=== PATIENT | female | born 1955 | race Caucasian/White ===

== ENCOUNTER 2019-12-07 09:42 | Outpatient (CLI) | payer MEDICARE, OTHER, SELFPAY ==
--- NOTE | ~2019-12-07 | DEXA_ITS ---
BMD(1) Young-Adult(2) Age-Matched(3) Region (g/cm2) T-score Z-score WHO Classification L1 0.955 -1.5 0.0 Osteopenia L2 1.003 -1.7 -0.1 Osteopenia L3 1.101 -0.9 0.6 Normal L4 1.324 0.8 2.4 Normal L1-L3 1.030 -1.2 0.3 Osteopenia Trend: L1-L3 Change vs Change vs Measured Age BMD(1) Baseline Previous Date (years) (g/cm2) (%) (%) 12/07/2019 [age] 1.030 baseline - 1 - Statistically 68% of repeat scans fall within 1SD (+- 0.010 g/cm2 for AP Spine L1-L3) 2 - [place] (Combined NHANES (ages 20-30) / [employer] (ages 20-40)) AP Spine Reference Population (v112) 3 - Matched for Age, Weight (females 25-100 kg), Ethnic 11 - World Health Organization - Definition of Osteoporosis and Osteopenia for Women: Normal = T-score at or above -1.0 SD; Osteopenia = T-score between -1.0 and -2.5 SD; Osteoporosis = T-score at or below -2.5 SD; (WHO definitions only apply when a young healthy Women reference database is used to determine T-scores.) Printed: 12/07/2019 10:31:50 AM (13.60)76:3.00:50.00:12.0 0.00:9.06 0.60x1.05 18.3:%Fat=21.9% 0.00:0.00 0.00:0.00 Verify bone is centered and there is sufficient tissue next to bone. Filename: [id number] Scan Mode: Standard;[employer] 37.0 [email or web address] [id number] BMD(1) Young-Adult(2,7) Age-Matched(3) Region (g/cm2) T-score Z-score WHO Classification Neck Left 0.737 -2.2 -0.7 Osteopenia Right 0.807 -1.7 -0.2 Osteopenia Mean 0.772 -1.9 -0.5 Osteopenia Difference 0.070 0.5 0.5 - Total Left 0.760 -2.0 -0.8 Osteopenia Right 0.822 -1.5 -0.3 Osteopenia Mean 0.791 -1.7 -0.5 Osteopenia Difference 0.062 0.5 0.5 - Hip [place] Length Comparison (mm) (Right = 106.9 mm) (Mean = 108.6 mm) (Left = 107.3 mm) Trend: Total Mean Change vs Change vs Measured Age BMD(1) Baseline Previous Date (years) (g/cm2) (%) (%) 12/07/2019 [age] 0.791 baseline - 1 - Statistically 68% of repeat scans fall within 1SD (+- 0.010 g/cm2 for DualFemur Total) 2 - [place] (Combined NHANES (ages 20-30) / [employer] (ages 20-40)) Femur Reference Population (v112) 3 - Matched for Age, Weight (females 25-100 kg), Ethnic 7 - [employer]em[employer] Total T-score difference is 0.5. Asymmetry is None. 11 - World Health Organization - Definition of Osteoporosis and Osteopenia for Women: Normal = T-score at or above -1.0 SD; Osteopenia = T-score between -1.0 and -2.5 SD; Osteoporosis = T-score at or below -2.5 SD; (WHO definitions only apply when a young healthy Women reference database is used to determine T-scores.) Printed: 12/07/2019 10:31:50 AM (13.60); Filename: [id number]; Right Femur; 16.3:%Fat=31.5%; Neck Angle (deg)= 48; Scan Mode: Standard 37.0 uGy; Left Femur; 16.1:%Fat=32.7%; Neck Angle (deg)= 54; Scan Mode: Standard 37.0 uGy Meta [id number] Dear Juan Adamson, Grace patient Audrey Means completed a BMD test on 12/07/2019 using the Meta DXA System (analysis version: 13.60) manufactured by [employer]. The following summarizes the results of our evaluation. PATIENT BIOGRAPHICAL: Name: Audrey Means B
--- NOTE | ~2019-12-07 | XR_ITS ---
XR hip LT min 2V DATE: 12/07/2019 10:38 INDICATION: Chronic bilateral hip pain. Left hip popping sound. TECHNIQUE: AP and lateral views COMPARISON: None FINDINGS: There is left hip joint space narrowing and mild spurring consistent with osteoarthritis. T here is chondrocalcinosis. No fracture or dislocation, avascular necrosis or bone destruction. IMPRESSION: Left hip osteoarthritis Chondrocalcinosis of the left hip Reviewed, dictated and finalized at location B. PROJECT ENGINEER
--- NOTE | ~2019-12-07 | XR_ITS ---
XR hip RT min 2V 12/07/2019 10:38 Indication: Chronic hip pain. Popping sensation. Procedure: 2 views right hip Comparison: 11/06/2010 Findings: Mild osteoarthritis of the right hip. There are loose bodies adjacent to the joint space. N o acute fracture or traumatic malalignment. Surrounding osseous structures and soft tissues are unrem arkable. Impression: 1: Mild osteoarthritis of the right hip. Reviewed, dictated and finalized at location A. CH ENGINE OPTIMIZATION ANALYST Impression: 1: Mild osteoarthritis of the right hip.
== END 2019-12-07 09:43 | disposition home or self-care (01) ==
PROVIDERS: PCP Internal Medicine; Visit Provider Internal Medicine
DX: M85.80 Other specified disorders of bone density and structure, unspecified site (principal); M25.559 Pain in unspecified hip; Z78.0 Asymptomatic menopausal state
CPT/HCPCS: 73502; 77080

== ENCOUNTER 2022-06-24 13:38 | Outpatient (CLI) | payer MEDICARE, OTHER, SELFPAY ==
--- NOTE | ~2022-06-24 | MM_ITS ---
EXAMINATION: MM screening [facility] w eliza HISTORY: Screening mammogram TECHNIQUE: Craniocaudal and mediolateral oblique 3-D tomosynthesis images were obtained and synthetic 2-D images were generated. CAD analysis was submitted and interpreted. COMPARISON: 03/23/2019, 11/04/2017, 06/01/2016 bilateral screening mammogram examinations BREAST PARENCHYMAL COMPOSITION: There are scattered areas of fibroglandular density. FINDINGS: There is no evidence of suspicious mass, calcification, or architectural distortion to sugg est malignancy in either breast. There has been no suspicious interval change. IMPRESSION: 1. No mammographic evidence of malignancy. 2. Recommend routine screening mammography in one year. BI-RADS Category 1: Negative Reviewed, dictated and finalized at location A.
== END 2022-06-24 13:39 | disposition home or self-care (01) ==
PROVIDERS: PCP Internal Medicine; Visit Provider Internal Medicine
DX: Z12.31 Encounter for screening mammogram for malignant neoplasm of breast (principal)
CPT/HCPCS: 77063; 77067

== ENCOUNTER 2022-08-03 12:36 | Outpatient (CLI) | payer MEDICARE, OTHER, SELFPAY ==
--- NOTE | ~2022-08-03 | DEXA_ITS ---
Bone Density Report Name: JOSE LUIS HOOPER Age: 66 Sex: Female Ethnicity: White Date of : 1955 Indication: postmenopausal; screening for osteoporosis; height loss; prior fracture; hysterectomy; Referring Provider: CHARLES BROWER Study: Bone densitometry was performed. Exam Date: August 03, 2022 Accession number: [id number] Bone Density: Region BMD T-score Z-score Classification AP Spine(L1-L4) 0.943 -0.9 1.0 Normal Femoral Neck (Left) 0.586 -2.4 -0.7 Osteopenia Total Hip (Left) 0.682 -2.1 -0.8 Osteopenia Femoral Neck (Right) 0.621 -2.1 -0.4 Osteopenia Total Hip (Right) 0.727 -1.8 -0.4 Osteopenia Total Hip Mean 0.704 -2.0 -0.6 Osteopenia World Health Organization criteria for BMD impression classify patients as: Normal (T-score at or above -1.0), Osteopenia (T-score between -1.0 and -2.5), or Osteoporosis (T-score at or below -2.5). 10-year Fracture Risk: FRAX not reported because: Prior hip or vertebral fracture Treated for osteoporosis Clinical Information Provided by Patient: Have had a previous hip or vertebral fracture Has had a low trauma fracture Is being treated for osteoporosis Has used the following medications: Vitamin D, Calcium Has the following medical conditions: Hysterectomy, hypothyroidism Patient maximum height was 69 Menopause Age: 44 Drinks caffeinated beverages Onset of menses at age 15 Number of children 3 Impression: The patient has low bone mass, based on the Left Femoral Neck T-score. The patient has risk factors, including: previous fracture. Discussion: It is important to ask patients whether they are taking their medications and to encourage continued and appropriate compliance with their osteoporosis therapies to reduce fracture risk. It is also important to review their risk factors and encourage appropriate calcium and vitamin D intakes, exercise, fall prevention and other lifestyle measures. Follow-Up: Consider a repeat BMD and Vertebral Fracture Assessment (VFA) exam in 2 years or sooner if medically necessary, to reassess this patient's status. Reported by: GERMANIA on 08/03/2022 12:55:00 PM. Reviewed, dictated and finalized at location ASlim MOSES
== END 2022-08-03 12:37 | disposition home or self-care (01) ==
LOC: ANHIMG 12:38
PROVIDERS: PCP Internal Medicine; Visit Provider Internal Medicine
DX: Z78.0 Asymptomatic menopausal state (principal); E03.9 Hypothyroidism, unspecified; M19.90 Unspecified osteoarthritis, unspecified site; M85.89 Other specified disorders of bone density and structure, multiple sites
CPT/HCPCS: 77080

== ENCOUNTER 2022-09-21 05:59 | Day surgery (SDC) | payer MEDICARE, OTHER, SELFPAY ==
[2022-05-28 08:34] VITALS: BMI 21.3
[2022-09-15 08:50] VITALS: BMI 22.1
--- NOTE | 2022-09-18 14:38 | PM.HPGS ---
History of Present Illness History of Present Illness Consent: Risks, benefits, and alternatives have been discussed and questions answered. Patient agrees to proceed with procedure. Chief complaint: History of Colon Polyps Narrative: Audrey Means is a 66 year old female referred for colon cancer screening. She has a history of having polyps. Review of Systems Review of Systems: All systems reviewed & are unremarkable except as noted in HPI and below PMFSH Past Medical History Medical History History of PSVT (paroxysmal supraventricular tachycardia) Hypothyroidism PONV (postoperative nausea and vomiting) Social History Social History Smoking status: Never smoker Second hand tobacco smoke exposure: No Alcohol intake: current Substance use: never Substance use type: does not use Living arrangements: with family Spiritual care concerns: No Meds Home Medications and Allergies Home Medications Medication Instructions Recorded Confirmed Type levothyroxine 50 mcg tablet 50 mcg PO DAILY 09/15/22 09/21/22 History Allergies Allergy/AdvReac Type Severity Reaction Status Date / Time No Known Allergies Allergy NONE Unverified 09/21/22 06:36 Exam Resp: Auscultation: clear to auscultation bilaterally Cardio: Rate: regular rate Rhythm: regular rhythm GI: GI Palp: Yes Soft to palpation and No Tenderness to palpation present (GI) Assessment and Plan Assessment and plan (1) Colon cancer screening: Code(s): Z12.11 - Encounter for screening for malignant neoplasm of colon Status: Acute Assessment and Plan: Colonoscopy with possible biopsy or polypectomy or cautery or injection of substances.
--- NOTE | 2022-09-20 20:10 | WPDANESEPPF ---
Anes - Initial Pre Proc Eval Procedure: Operation Date: 09/21/22 07:30 Proposed Procedures p Screening Colonoscopy - Butch Mckinney MD Date/Time: 09/20/22 20:10 Surgeon: Butch Mckinney MD Pre Op Diagnosis: History of Colon Polyps Patient Data Age: 66 Gender: F Height: 1.7 m Weight: 64 kg Allergies Allergy/AdvReac Type Severity Reaction Status Date / Time No Known Allergies Allergy NONE Unverified 09/21/22 06:36 Home Medications Medication Instructions Recorded Confirmed Type levothyroxine 50 mcg tablet 50 mcg PO DAILY 09/15/22 09/21/22 History Patient hx anesthesia problems: none Family hx anesthesia problems: none Results Review: All pre-operative results and documents have been reviewed as part of the pre-operative evaluation. [facility] Past Medical History Medical History (Updated 09/20/22 @ 20:09 by Keegan Bland DO) History of PSVT (paroxysmal supraventricular tachycardia) Hypothyroidism PONV (postoperative nausea and vomiting) Social History Social History Smoking status: Never smoker Second hand tobacco smoke exposure: No Alcohol intake: current Substance use: never Substance use type: does not use Living arrangements: with family Spiritual care concerns: No Anes - Eval Final PreProcedure Day of Procedure 09/20/22 20:10 Patient weight: normal Heart: regular rate and rhythm Lungs: clear to auscultation and normal air movement Airway: Mallampati scale class II Neurological: alert and oriented Last oral intake: >/= 8 hours ASA classification: II Emergent: no Anesthetic plan: proceed Anesthesia type and monitoring: general GIVS and standard monitoring Results Review: All pre-operative results and documents have been reviewed as part of the pre-operative evaluation. Informed Consent: The patient's anesthetic plan and its attendant risks and benefits were discussed with the patient/family/POA. Questions were solicited and answers provided to the satisfaction of the patient/family/POA.
[2022-09-21 06:20] VITALS: BP 113/64; PULSE 112; RESP 20; TEMP 37.6; O2SAT 97
[2022-09-21] MEDS: LACTATED RINGERS 1,000 ML 150 ML IV CONT (06:38)
[2022-09-21 07:32] VITALS: BP 105/68; PULSE 88; RESP 16; O2SAT 98
[2022-09-21 07:42] VITALS: BP 124/65; PULSE 88; RESP 16; O2SAT 98
[2022-09-21 07:52] VITALS: BP 124/75; PULSE 83; RESP 15; O2SAT 96
--- NOTE | 2022-09-21 11:38 | WPDANESPN ---
Anes - Prog Note Post-Op Date/Time: 09/21/22 11:38 Cardiovascular status: normal Respiratory status: normal Airway patency: baseline Mental status: baseline Post-Op hydration status: normal Vital Signs: Last Vital Signs Temp 37.6 C H 09/21/22 06:20 Pulse 83 09/21/22 07:52 Resp 15 09/21/22 07:52 BP 124/75 09/21/22 07:52 Pulse Ox 96 09/21/22 07:52 O2 Del Method Room Air 09/21/22 07:52 Pain Score (VAS): 0 I/O: Intake & Output 09/20/22 09/21/22 09/21/22 23:59 07:59 15:59 Intake Total 400 Balance 400 Post-procedural complaints: none Patient Feedback: Patient satisfied with anesthetic care. Other Findings: Patient vital signs back to baseline. Patient denies nausea and vomiting. Patient's pain under control. Patient OK for discharge.
== END 2022-09-21 08:05 | disposition home or self-care (01) ==
PROVIDERS: PCP Internal Medicine; Visit Provider Internal Medicine Gastroenterology
PROC: 0DJD8ZZ Inspection of Lower Intestinal Tract, Via Natural or Artificial Opening Endoscopic (ICD-10-PCS; CPT 45378; principal; 2022-09-21 07:30)
DX: Z12.11 Encounter for screening for malignant neoplasm of colon (principal)
CPT/HCPCS: 45378

== ENCOUNTER 2024-01-13 11:57 | Outpatient (CLI) | payer MEDICARE, SELFPAY ==
--- NOTE | ~2024-01-13 | CT_ITS ---
EXAMINATION: CT abdomen pelvis w con INDICATION: Right lower quadrant pain TECHNIQUE: Computed tomographic images of the abdomen and pelvis were obtained after the administrati on of 100 cc of Omnipaque 350 intravenous contrast. The dose-length product (DLP) was 268.97 mGy-cm. Automated exposure control and iterative reconstruction technique were employed. COMPARISON: None available FINDINGS: The lung bases are clear. The heart size is normal. The liver, spleen, pancreas, gallbladde r, and adrenal glands are normal. The kidneys are unremarkable. There is calcified atherosclerosis of the aorta and many of the other arteries. No pathologically enlarged abdominal or pelvic lymph nodes are identified. No free intraperitoneal gas or evidence of bowel obstruction. The dilated appendix m easures up to 7 mm. There is edematous stranding of the periappendiceal fat. No perforation or periap pendiceal abscess are identified. There is severe lumbar spondylosis. IMPRESSION: 1. Uncomplicated acute appendicitis. Reviewed, dictated and finalized at location F.
[2024-01-13 12:17] LABS: Basophils Absolute Auto 0.05 K/mm3 (0.00-0.10); Basophils Percent Auto 0.6 % (0.0-1.0); Eosinophils Absolute Auto 0.44 K/mm3 (0.02-0.50); Eosinophils Percent Auto 5.3 % (1.0-6.0); Hematocrit 42.6 % (35.0-42.0); Hemoglobin 13.9 g/dL (11.7-13.8); Immature Granulocyte Absolute 0.04 K/mm3 (0.00-0.00); Immature Granulocyte Percent A 0.5 % (0.0-0.0); Lymphocytes Absolute Auto 1.64 K/mm3 (1.10-4.50); Lymphocytes Percent Auto 19.8 % (18.0-42.0); Mean Corpuscular HGB Conc 32.6 g/dL (32-36); Mean Corpuscular Hemoglobin 29.7 pg (27.0-31.0); Monocytes Absolute Auto 0.59 K/mm3 (0.10-0.90); Monocytes Percent Auto 7.1 % (2.0-11.0); Neutrophils Absolute Auto 5.51 K/mm3 (1.70-7.20); Neutrophils Percent Auto 66.7 % (50.0-70.0); Platelet Count Result 258 K/mm3 (150-420); Red Blood Count 4.68 M/mm3 (4.20-5.40); Red Cell Distribution Width 11.7 % (11.6-14.4); White Blood Count 8.3 K/mm3 (4.8-10.8)
[2024-01-13 12:23] LABS: Appearance Urine Clear (Clear); Bilirubin Urine Negative (Negative); Blood Urine Negative (Negative); Color Urine Yellow (Yellow); Glucose Urine UA Negative (Negative); Ketones Urine 1+ (Negative); Leukocyte Esterase Ur Negative (Negative); Nitrate Urine Negative (Negative); Protein Urine Negative (Negative); Specific Grav Ur 1.025 (1.010-1.020); Urobilinogen Urine 0.2 mg/dL (0.2-1.0)
[2024-01-13 12:28] LABS: Add Urine Microscopic? YES; Bacteria Urine Trace /hpf; Mucus Urine Moderate /lpf; RBC Urine None seen /hpf (0-2); Squamous Epithelial Cell Urine Few /hpf (Few); WBC Urine None seen /hpf (0-3)
[2024-01-13 12:44] LABS: Alanine Aminotransferase 21 U/L (14-59); Albumin Level 3.5 g/dL (3.4-5.0); Alkaline Phosphatase 61 U/L (46-116); Amylase 25 U/L (25-115); Anion Gap 8 mmol/L (4-12); Aspartate Amino Transferase 13 U/L (15-37); Bilirubin,Total 0.6 mg/dL (0.00-1.00); Blood Urea Nitrogen 15 mg/dL (7-18); Calcium 9.5 mg/dL (8.5-10.1); Carbon Dioxide 31 mmol/L (21-32); Chloride 103 mmol/L (98-108); Estimated Glomerular Filt Rate > 60; Glucose 105 mg/dL (70-99); Lipase 31 U/L (16-77); Osmolality Calculated 294 mOsm/kg (285-295); Potassium 4.2 mmol/L (3.5-5.1); Sodium 142 mmol/L (136-145); Total Protein 7.4 g/dL (6.4-8.2)
== END 2024-01-13 11:58 | disposition home or self-care (01) ==
PROVIDERS: PCP Internal Medicine; Visit Provider Internal Medicine
DX: R11.0 Nausea (principal); R10.31 Right lower quadrant pain; K37 Unspecified appendicitis
CPT/HCPCS: 36415; 74177; 80053; 81001; 82150; 83690; 85025; Q9967

== ENCOUNTER 2024-01-13 14:31 | Day surgery (SDC) | payer MEDICARE, SELFPAY ==
[2024-01-13] VITALS (10 sets, daily range): BP systolic 121–143; BP diastolic 51–87; PULSE 76–96; RESP 12–20; TEMP 36.1–36.8; O2SAT 96–100
[2024-01-13 15:01] LABS: Basophils Absolute Auto 0.1 K/mm3 (0.0-0.1); Basophils Percent Auto 0.6 % (0.2-1.2); Eosinophils Absolute Auto 0.3 K/mm3 (0-0.3); Eosinophils Percent Auto 3.3 % (0-4.4); Hematocrit 43.7 % (37.0-47.0); Hemoglobin 14.4 g/dL (12.0-15.0); Immature Granulocyte Absolute 0.03 K/mm3 (0.00-0.031); Immature Granulocyte Percent A 0.3 % (0-0.5); Lymphocytes Absolute Auto 1.37 K/mm3 (0.9-3.2); Lymphocytes Percent Auto 15.7 % (18.3-44.2); Mean Corpuscular Hemoglobin 29.9 pg (26-34); Mean Corpuscular Volume 90.9 fl (80-100); Mean Platelet Volume 10.5 fl (7.4-10.4); Monocytes Absolute Auto 0.6 K/mm3 (0.1-0.6); Monocytes Percent Auto 6.6 % (2.6-8.5); Neutrophils Absolute Auto 6.4 K/mm3 (1.3-6.7); Neutrophils Percent Auto 73.5 % (45.5-73.1); Platelet Count Result 268 k/mm3 (150-375); Red Blood Count 4.81 M/mm3 (4.2-5.4); Red Cell Distribution Width 11.8 % (11.5-14.5); White Blood Count 8.7 K/mm3 (4.5-10.0)
[2024-01-13 15:07] LABS: Alanine Aminotransferase 17 U/L (6-35); Albumin Level 4.4 g/dL (3.5-5.1); Alkaline Phosphatase 75 U/L (38-126); Anion Gap 8 mmol/L (4-12); Aspartate Amino Transferase 22 U/L (14-36); Bilirubin,Total 0.9 mg/dL (0.2-1.3); Blood Urea Nitrogen 14 mg/dL (7-17); Calcium 9.9 mg/dL (8.4-10.2); Carbon Dioxide 26 mmol/L (22-30); Chloride 102 mmol/L (98-107); Estimated CRCL calculation 65 ml/min; Estimated Glomerular Filt Rate > 60; Glucose 106 mg/dL (65-110); Potassium 3.8 mmol/L (3.4-5.0); Sodium 136 mmol/L (137-145)
--- NOTE | 2024-01-13 15:08 | ED.ABDPAIN ---
HPI - Abdominal Pain General Chief Complaint: Abdominal Pain Stated Complaint: appendicitis Time Seen by Provider: 01/13/24 14:37 History of Present Illness HPI narrative: 68-year-old female presented to the emergency department for evaluation of right lower quadrant pain that started on Wednesday. Patient does report a prior history of paroxysmal SVT and prior surgeries include a hysterectomy and a tubal ligation. Patient began having abdominal pain Wednesday did have a CT scan today as outpatient showing acute appendicitis. Patient denies any prior history of coronary disease and does not take any blood thinners. Related Data Home Medications Medication Instructions Recorded Confirmed levothyroxine 50 mcg tablet 50 mcg PO DAILY 09/15/22 09/21/22 Allergies Allergy/AdvReac Type Severity Reaction Status Date / Time No Known Allergies Allergy NONE Unverified 01/13/24 15:32 Review of Systems Review of Systems: All systems reviewed & are unremarkable except as noted in HPI and below PMFSH Past Medical History Medical History History of PSVT (paroxysmal supraventricular tachycardia) Hypothyroidism PONV (postoperative nausea and vomiting) Surgical History Surgical History History of total abdominal hysterectomy History of tubal ligation Social History Social History Smoking status: Never smoker Second hand tobacco smoke exposure: No Alcohol intake: current Substance use: never Substance use type: does not use Living arrangements: with family Spiritual care concerns: No Exam Narrative: APPEARANCE: Well appearing, no pain, no distress, well-nourished. HEAD: normocephalic, atraumatic. EYES: PERRLA/EOMI, conjunctivae clear. NOSE: Normal no drainage EARS:TMS clear with good light reflex. THROAT: Pharynx clear, no exudate. NECK: Supple. No adenopathy, no masses. RESPIRATORY: Airway patent, respirations nonlabored. Clear to auscultation bilaterally, no rales, rhonchi, wheezing. CARDIOVASCULAR: Regular rate and rhythm without murmurs rubs or gallops. ABDOMINAL: Right lower quadrant tenderness to palpation MUSCULOSKELETAL: Moves all extremities. Strength/ROM intact, No edema, No calf tenderness. NEURO: Alert. Cranial nerves II through XII intact. Good gait. Good coordination SKIN: Warm, dry. Course Course Emergency Course: Case was admitted to surgery for anticipated appendectomy Vital Signs Vital signs: Vital Signs Temperature 97.5 F L 01/13/24 14:37 Pulse Rate 93 01/13/24 14:37 Respiratory Rate 20 01/13/24 14:37 Blood Pressure 126/81 01/13/24 14:37 Pulse Oximetry 97 01/13/24 14:37 Oxygen Delivery Room Air 01/13/24 14:37 Temperature 97.0 F L 01/13/24 19:48 Pulse Rate 82 01/13/24 20:30 Respiratory Rate 16 01/13/24 20:30 Blood Pressure 126/68 01/13/24 20:30 Pulse Oximetry 98 01/13/24 20:30 Oxygen Delivery Room Air 01/13/24 20:30 Oxygen Flow Rate 6 01/13/24 20:00 MDM - Abdominal Pain MDM Narrative Medical decision making narrative: 68-year-old female present to the emergency department for evaluation of right lower quadrant pain. Patient was afebrile with no leukocytosis and hemoglobin of 14.4 no significant abnormalities on her CMP. Patient was B positive. CT scan did show evidence acute appendicitis. Surgery was consulted and ultimately surgery did agree to take her to the operating room today. Patient was treated with a dose of Zosyn. Patient family were updated on the results of the workup plan for admission. All questions and were addressed. Differential Diagnosis Differential diagnosis: Likely abdominal pain, acute appendicitis, calculus of kidney, constipation, diverticulitis, gastroenteritis, pancreatitis and small bowel obstruction Lab Data Attestation: I reviewed the ron
[2024-01-13 15:14] LABS: Prothrombin Time 13.3 Seconds (11.1-14.7)
[2024-01-13 15:15] LABS: Partial Thromboplastin Time 27.5 Seconds (22.3-36.8)
[2024-01-13] MEDS: PIPERACILLN/TAZ 3.375GM/NS50ML 3.375 GM/50 ML BAG IVPB (15:32)
[2024-01-13] MEDS: MORPHINE SULFATE (*CRX) 2 MG/ML INJ IV PUSH (15:44)
--- NOTE | 2024-01-13 15:49 | PM.IMHP ---
H&P: HPI History of Present Illness Date/Time: 01/13/24 15:49 Chief Complaint: RLQ abdominal pain Narrative: This is a 68-year-old woman with a history of hypothyroidism, who presented to her PCP today with complaints of RLQ abdominal pain. She woke up with pain Wednesday morning, 4 days ago. She reports the pain as constant and radiates to the suprapubic area. Pain is aggravated by deep breathing, coughing, and any movement. She denies ever having this pain in the past. She reports associated nausea and poor appetite, but no vomiting. Her nausea was bad enough that she has not been able to eat in a few days. She has been able to tolerate some liquids though daily. No fever or chills. She has not been able to sleep the last few nights due to the pain. She went into her PCP today for evaluation. They ordered an outpatient CT scan of the abdomen and pelvis that showed acute uncomplicated appendicitis. No perforation or abscess. Outpatient labs unremarkable with a normal WBC count. She was directed to come to the ER for surgical evaluation. The ER provider evaluated the patient and consulted our service. She is now seen in the ER. She is still having pain but had not had any analgesics in the ER yet. She is asking for some now. Previous abdominal surgeries include a laparoscopic tubal ligation and a total abdominal hysterectomy. Review of Systems Review of Systems: All systems reviewed & are unremarkable except as noted in HPI and below Constitutional: Constitutional: Reports as per HPI, Reports no additional constitutional complaints, Denies chills, Denies fatigue, Denies fever(s) and Reports poor appetite Eyes: Eyes: Reports no additional eye complaints ENT: Reports system reviewed and no additional complaints, except as documented and Denies dizziness Cardiovascular: Cardiovascular: Reports no additional cardiovascular complaints, Denies chest pain and Denies leg edema Respiratory: Respiratory: Reports no additional respiratory complaints, Denies cough and Denies dyspnea Gastrointestinal: Gastrointestinal: Reports as per HPI, Reports no additional gastrointestinal complaints, Reports abdominal pain, Denies change in bowel habits, Denies change in stool character, Reports nausea and Denies vomiting Genitourinary: Genitourinary: Reports no additional female genitourinary complaints and Denies dysuria Musculoskeletal: Musculoskeletal: Reports no additional musculoskeletal complaints, Denies abnormal gait and Denies joint swelling Integumentary/Breasts: Skin/Breast: Reports system reviewed and no additional complaints, except as docu Neurologic: Reports system reviewed and no additional complaints, except as documented, Denies headache(s), Denies focal weakness, Denies numbness and Denies tingling PMFSH Past Medical History Medical History (Updated 01/13/24 @ 15:57 by MADI Woodard) History of PSVT (paroxysmal supraventricular tachycardia) Hypothyroidism PONV (postoperative nausea and vomiting) Surgical History Surgical History History of total abdominal hysterectomy History of tubal ligation Social History Social History Smoking status: Never smoker Second hand tobacco smoke exposure: No Alcohol intake: current Substance use: never Substance use type: does not use Living arrangements: with family Spiritual care concerns: No Meds Home Medications and Allergies Home Medications Medication Instructions Recorded Confirmed Type levothyroxine 50 mcg tablet 50 mcg PO DAILY 09/15/22 09/21/22 History Allergies Allergy/AdvReac Type Severity Reaction Status Date / Time No Known Allergies Allergy NONE Unverified 01/13/24 15:32 Vital Signs Vital Signs - 24 hr 01/13/24 14:37 Temperature 97.5 F L Pulse Rate 93 Respiratory Rate 20 Blood Pressure 126/81 Pulse Oximetry 97 Oxygen Delivery Ro
[2024-01-13] MEDS: LACTATED RINGERS 1,000 ML 30 ML IV CONT (17:54)
--- NOTE | 2024-01-13 18:44 | WPDANESEPPF ---
Anes - Initial Pre Proc Eval Procedure: Operation Date: 01/13/24 17:00 Proposed Procedures p Laparoscopic Appendectomy - Yoel Blunt MD Date/Time: 01/13/24 18:44 Pre Op Diagnosis: appendicitis Patient Data Age: 68 Gender: F Height: 1.75 m Weight: 63.3 kg Last Vital Signs Temp 36.8 C 01/13/24 16:25 Pulse 76 01/13/24 16:25 Resp 16 01/13/24 16:25 BP 130/87 01/13/24 16:25 Pulse Ox 97 01/13/24 16:25 O2 Del Method Room Air 01/13/24 16:25 Allergies Allergy/AdvReac Type Severity Reaction Status Date / Time No Known Allergies Allergy NONE Unverified 01/13/24 15:32 Home Medications Medication Instructions Recorded Confirmed Type levothyroxine 50 mcg tablet 50 mcg PO DAILY 09/15/22 09/21/22 History Laboratory Tests 01/13/24 14:46 WBC 8.7 K/mm3 (4.5-10.0) RBC 4.81 M/mm3 (4.2-5.4) Hgb 14.4 g/dL (12.0-15.0) Hct 43.7 % (37.0-47.0) MCV 90.9 fl (80-100) MCH 29.9 pg (26-34) MCHC 33.0 g/dl (32-36) RDW 11.8 % (11.5-14.5) Plt Count 268 k/mm3 (150-375) MPV 10.5 H fl (7.4-10.4) Immature Gran % (Auto) 0.3 % (0-0.5) Neut % (Auto) 73.5 H % (45.5-73.1) Lymph % (Auto) 15.7 L % (18.3-44.2) [place] % (Auto) 6.6 % (2.6-8.5) Eos % (Auto) 3.3 % (0-4.4) Baso % (Auto) 0.6 % (0.2-1.2) Lymph # (Auto) 1.37 K/mm3 (0.9-3.2) [place] # (Auto) 0.6 K/mm3 (0.1-0.6) Eos # (Auto) 0.3 K/mm3 (0-0.3) Baso # (Auto) 0.1 K/mm3 (0.0-0.1) Abs Immat Gran (auto) 0.03 K/mm3 (0.00-0.031) Absolute Neuts (auto) 6.4 K/mm3 (1.3-6.7) Absolute Nucleated RBC 0.000 K/mm3 (0.0-0.012) Nucleated RBC % 0.0 % (0.0-0.2) PT 13.3 Seconds (11.1-14.7) INR 1.0 APTT 27.5 Seconds (22.3-36.8) Sodium 136 L mmol/L (137-145) Potassium 3.8 mmol/L (3.4-5.0) Chloride 102 mmol/L (98-107) Carbon Dioxide 26 mmol/L (22-30) Anion Gap 8 mmol/L (4-12) BUN 14 mg/dL (7-17) Creatinine 0.70 mg/dL (0.7-1.0) Estim Creat Clear Calc 65 ml/min Estimated GFR > 60 (59 - ) Glucose 106 mg/dL (65-110) Calcium 9.9 mg/dL (8.4-10.2) Total Bilirubin 0.9 mg/dL (0.2-1.3) AST 22 U/L (14-36) ALT 17 U/L (6-35) Alkaline Phosphatase 75 U/L (38-126) Total Protein 8.0 g/dL (6.3-8.2) Albumin 4.4 g/dL (3.5-5.1) Blood Type B Positive Antibody Screen Negative Patient hx anesthesia problems: none Family hx anesthesia problems: none Results Review: All pre-operative results and documents have been reviewed as part of the pre-operative evaluation. [facility] Past Medical History Medical History History of PSVT (paroxysmal supraventricular tachycardia) Hypothyroidism PONV (postoperative nausea and vomiting) Surgical History Surgical History History of total abdominal hysterectomy History of tubal ligation Social History Social History Smoking status: Never smoker Second hand tobacco smoke exposure: No Alcohol intake: current Substance use: never Substance use type: does not use Living arrangements: with family Spiritual care concerns: No Anes - Eval Final PreProcedure Day of Procedure 01/13/24 18:44 Patient weight: normal Heart: regular rate and rhythm Lungs: clear to auscultation Airway: Mallampati scale class II Neurological: alert and oriented Last oral intake: >/= 8 hours ASA classification: II Emergent: no Anesthetic plan: proceed Anesthesia type and monitoring: general ETT and standard monitoring Results Review: All pre-operative results and documents have been reviewed as part of the pre-operative evaluation. Informed Consent: The patient's anesthetic plan and its attendant risks and benefits were discussed with
--- NOTE | 2024-01-13 18:47 | WPDHPUPDATE1 ---
History and Physical Update Update Date/Time: 01/13/24 18:47 History and Physical has been reviewed, including an updated exam of the patient. There are NO changes in the patient's condition. Risks, benefits, and alternatives have been discussed and questions answered. Patient agrees to proceed with procedure.
[2024-01-13] MEDS: BUPIVACAINE/EPINEPHRINE 0.5% 30 ML VIAL INFILTRATE (19:21)
--- NOTE | 2024-01-13 19:57 | W.PM.PROC2 ---
Procedure Note - Detailed Date of Procedure 01/13/24 Pre-op Diagnosis Acute appendicitis Post-op Diagnosis Other (Acute appendicitis with localized perforation) Procedure Performed Laparoscopic appendectomy Surgeon Yoel Blunt MD Automobile Mechanic Assistant Vincent JHAVERI Anesthesia General and Local Indications Patient had been having abdominal pain since Wednesday. It has been persistent and associated with nausea to the degree that she really has a need much all week. The pain is primarily in the right lower quadrant and radiates to the pelvis. Her appetite has been poor and she has not been able to sleep at night due to the pain. Pain was much worse with coughing and movement. She saw her primary care physician this morning. He was suspicious that this might be appendicitis. An outpatient CT scan did show acute appendicitis. She came to the emergency room at [facility]. Her white blood cell count was normal but she had exquisite tenderness in the right lower quadrant with guarding and rebound. After review of her CT scan I was in agreement that this was acute appendicitis. She is taken to the operating room now for laparoscopic appendectomy. Findings Acute appendicitis with localized perforation about the midpoint of the appendix. The appendix was hyperemic. There was no spread of any purulent material or appendiceal content but only necrotic tissue over the area of the perforation. I should also point out that the appendix was blanketed by the omentum to the point that it was difficult to dissect the omentum off the appendix. No other significant findings were noted Description of Procedure Patient was taken to surgery and induced into general anesthesia. The abdomen is prepped draped. Trocars were placed in the usual fashion using applied Medical optical trocars and a 5 mm camera. Once the trocars were in place and insufflation was adequate, the patient was placed in Trendelenburg in the right-side was elevated. The appendix was located but was completely covered with the omentum blanket had over the appendix. Was able to see the base of the appendix and after a little bit of dissection eventually grasp an area of the omentum that I was able to peel the omentum off the appendix. I then elevated the appendix using its mesoappendix to do this. It was obvious there was a perforation in the midportion of the appendix but no purulent fluid, stool or other appendiceal content had spilled. I had dissected the mesoappendix and thoroughly cauterized the appendiceal artery. Other vessels in the mesoappendix were likewise cauterized. Eventually I skeletonized the base of the appendix. A Vicryl endoloop was then used to ligate the appendix at its base. The appendix was then amputated and immediately placed in an Endo-Catch bag. It was removed from the abdomen in the left lower quadrant 10 11 trocar site. I replaced the left lower quadrant trocar and then we reviewed the stump of the appendix as well as the surrounding tissues and omentum. No sign of purulent fluid or abscess was noted. I irrigated the area and suctioned away the irrigant. This was done a couple of times. All looked quite good with no evidence of bleeding or other problems. We then evacuated CO2 and removed the trocar sleeves. Skin wounds were closed with subcuticular 4-0 Monocryl skin suture. The wounds were dressed with Exofin surgical adhesive. Patient was awakened and taken to recovery in good condition. Sponge and needle counts were correct x2. Estimated Blood Loss -5 Drains No Packing No Pathology Yes (Appendix) Complications No immediate complications Condition Stable Disposition PACU [facility] Billing Surgery - Charge Forward: Surgery Billing (Laparoscopic appendectomy)
[2024-01-13] MEDS: ERTAPENEM 1 GM/NS 50 ML 1 GM/50 ML BAG IVPB (20:55)
[2024-01-13] MEDS: oxyCODONE HCL (*CRX) 5 MG TAB IR PO (21:10)
== END 2024-01-13 21:35 | disposition home or self-care (01) ==
LOC: ANHED 21:12 → ANHSURGERY 21:32
PROVIDERS: Emergency Provider Emergency Medicine; PCP Internal Medicine; Visit Provider Surgery
PROC: 0DTJ4ZZ Resection of Appendix, Percutaneous Endoscopic Approach (ICD-10-PCS; CPT 44970; principal; 2024-01-13 17:00)
DX: K35.32 Acute appendicitis with perforation, localized peritonitis, and gangrene, without abscess (principal); D12.1 Benign neoplasm of appendix; E03.9 Hypothyroidism, unspecified
CPT/HCPCS: 44970; 36415; 80053; 85025; 85610; 85730; 86850; 86900; 86901; 87040; 88304; 96365; 96375; 99285; A9270; J0330; J1100; J1335; J2250; J2270; J2405; J2543; J2704; J7030; J7120

== ENCOUNTER 2024-09-28 07:06 | Outpatient (CLI) | payer MEDICARE, SELFPAY ==
--- NOTE | ~2024-09-28 | MM_ITS ---
EXAMINATION: MM screening [facility] BI w eliza HISTORY: Screening TECHNIQUE: Craniocaudal and mediolateral oblique 3-D tomosynthesis images were obtained and synthetic 2-D images were generated. CAD analysis was submitted and interpreted. COMPARISON: Comparison to multiple prior studies sequentially, with oldest reviewed study dated 05/28. BREAST PARENCHYMAL COMPOSITION: Not dense: There are scattered areas of fibroglandular density. FINDINGS: There is no evidence of suspicious mass, calcification, or architectural distortion to sugg est malignancy in either breast. There has been no suspicious interval change. IMPRESSION: 1. No mammographic evidence of malignancy. 2. Recommend routine screening mammography in one year. BI-RADS Category 1: Negative Reviewed, dictated and finalized at location B. ERIES TECHNICAL OFFICER
--- NOTE | ~2024-09-28 | DEXA_ITS ---
Bone Density Report Name: JOSE LUIS HOOPER Age: 69 Sex: Female Ethnicity: White Date of : 1955 Indication: osteopenia; parental hip fracture; height loss; prior fracture; hysterectomy; Referring Provider: Juan Adamson Study: Bone densitometry was performed. Exam Date: September 28, 2024 Accession number: [id number] Bone Density: Region BMD T-score Z-score Classification AP Spine(L1-L4) 0.951 -0.9 1.2 Normal Femoral Neck (Left) 0.561 -2.6 -0.8 Osteoporosis Total Hip (Left) 0.671 -2.2 -0.7 Osteopenia Femoral Neck (Right) 0.576 -2.5 -0.7 Osteoporosis Total Hip (Right) 0.717 -1.8 -0.3 Osteopenia Femoral Neck Mean 0.569 -2.5 -0.7 Osteoporosis Total Hip Mean 0.694 -2.0 -0.5 Osteopenia World Health Organization criteria for BMD impression classify patients as: Normal (T-score at or above -1.0), Osteopenia (T-score between -1.0 and -2.5), or Osteoporosis (T-score at or below -2.5). 10-year Fracture Risk: FRAX not reported because: Some T-score for Spine Total or Hip Total or Femoral Neck at or below -2.5 Prior hip or vertebral fracture Previous Exams: Region Exam Age BMD T-score BMD Change BMD Change Date g/cm2 vs Baseline vs Previous AP Spine (L1-L4) 09/28/2024 69 0.951 -0.9 -0.045 (-4.5%) -0.045 (-4.5%) 12/07/2019 64 0.997 -0.5 Total Hip(Left) 09/28/2024 69 0.671 -2.2 -0.029 (-4.2%) -0.029 (-4.2%) 12/07/2019 64 0.701 -2.0 Total Hip(Right) 09/28/2024 69 0.717 -1.8 -0.043 (-5.7%) -0.043 (-5.7%) 12/07/2019 64 0.761 -1.5 *Denotes significance at 95% confidence level, LSC for AP Spine = 0.022 g/cm2, LSC for Total Hip = 0.027 g/cm2 # Denotes dissimilar scan types or analysis methods Clinical Information Provided by Patient: Have had a previous hip or vertebral fracture Has had a low trauma fracture Parent has had a hip fracture Has used the following medications: Vitamin D Has the following medical conditions: Hysterectomy Patient maximum height was 69 Menopause Age: 44 Drinks caffeinated beverages Onset of menses at age 15 Number of children 3 Impression: The patient has established osteoporosis, based on the Left Femoral Neck T-score and the existence of a prior fracture. The patient has risk factors, including: parental hip fracture, previous fracture. No significant bone loss was observed. Discussion: HIGH RISK OF FRACTURE. BONE DENSITY IS UNDESIRABLY LOW AT ONE OR MORE SKELETAL SITES, CONSISTENT WITH POSTMENOPAUSAL OSTEOPOROSIS. This patient's lowest T-score, in a patient who has previously fractured, meets the World Health Organization's (WHO) criteria for severe osteoporosis. In untreated patients, the risk of osteoporotic fracture increases approximately two-fold for each 1.0 SD decrease in T-score. Low bone density is not the only risk factor for fracture; also consider factors such as patient's age, frailty or poor health, risk of falling, risk of injury, previous osteoporotic fracture, family history of osteoporosis, cigarette smoking, low body weight, etc. Not everyone with low bone mineral density has osteoporosis; osteomalacia and other metabolic bone disorders should also be considered. Patients who have osteoporosis should be evaluated for specific diseases and conditions (secondary causes) that may cause or contribute to bone loss. The [place] Association of Clinical Endocrinologists (AACE) and National Osteoporosis Foundation (NOF) recommend pharmacologic intervention for all postmenopausal women with a previous hip or vertebral fracture and a T-score in this range. The patient should follow a healthful lifestyle (good nutrition with adequate calcium and vitamin D, and appropriate weight-bearing exercise). Follow-Up: Consider a repeat BMD and Vertebral Fracture Assessment (VFA) exam in 2 years or sooner if medically necessary, to reassess this patient's status. Reported by: WILL on 09/28/2024 7:37:00 AM. Reviewed, dictated and finalized at location A.
== END 2024-09-28 07:07 | disposition home or self-care (01) ==
LOC: CHSIMG 07:08
PROVIDERS: PCP Internal Medicine; Visit Provider Internal Medicine
DX: Z12.31 Encounter for screening mammogram for malignant neoplasm of breast (principal); Z78.0 Asymptomatic menopausal state; M85.89 Other specified disorders of bone density and structure, multiple sites; M81.0 Age-related osteoporosis without current pathological fracture
CPT/HCPCS: 77063; 77067; 77080

== ENCOUNTER 2024-10-13 08:22 | Outpatient (CLI) | payer MEDICARE, SELFPAY ==
[2024-10-13 08:43] VITALS: BP 109/74; PULSE 83; RESP 18; TEMP 36; O2SAT 97
[2024-10-13] MEDS: ZOLEDRONIC ACID 5 MG/100 ML 100 ML 400 MG IVPB (09:01)
[2024-10-13 09:29] VITALS: BMI 21.9
--- OUTSIDE RECORDS SUMMARY | 2024-10-20 18:03 | XMS_ITS | Encounter Summary ---
Author Organization [facility] Address [address] [place] [address]. [place], [place] [id number] [place] [address] Care Team Providers Care Public Interviewer Name Role Phone Juan Adamson MD Primary Care Provider [phone] Reason for Visit * Reason Comments Therapy Report (SCAN) Encounter Details Date Type Department Care Team ([facility] st Contact Info) Description 01/06/2021 Scan [facility] [address] [place] [address] [place] [address] Scanned, Documents Therapy Report (SCAN) Social History Tobacco Use Types Packs/Day Years Used Date Smoking Tobacco: Never Smokeless Tobacco: Never Alcohol Use Standard Drinks/Week Comments Yes 0 (1 standard drink = 0.6 oz pur e alcohol) Comments Unknown Sex and Gender Information Value Date Recorded Sex Assigned at Not on file Legal Sex Female 5:20 PM CDT Gender Identity Not on file Sexual Orientation Not on file documented as of this encounter Plan of Treatment Not on file documented as of this encounter Visit Diagnoses Not on filedocumented in this encounter Care Teams Public Interviewer Relationship Specialty Start Date End Date Juan Adamson MD PCP - General INTERNAL MEDICINE 10/17/19 documented as of this encounter
--- OUTSIDE RECORDS SUMMARY | 2024-10-20 18:03 | XMS_ITS | Encounter Summary ---
Author Organization [facility] Address [address] [place] [address]. [place], [place] [id number] [place] [address] Care Team Providers Care Senior Staff Psychologist Name Role Phone Juan Adamson MD Primary Care Provider [phone] Encounter Details Date Type Department Care Team (Latest Contact Info) Description 05/26/2021 Travel Social History Tobacco Use Types Packs/Day Years Used Date Smoking Tobacco: Never Smokeless Tobacco: Never Alcohol Use Standard Drinks/Week Comments Yes 0 (1 standard drink = 0.6 oz pur e alcohol) Comments No Sex and Gender Information Value Date Recorded Sex Assigned at Not on file Legal Sex Female 5:20 PM CDT Gender Identity Not on file Sexual Orientation Not on file COVID-19 Exposure Response Date Recorded In the last month, have you been in contact with someone who was confirmed or suspected to have Coronavirus / COVID-19? No / Unsure 05/26/2021 11:18 AM CDT documented as of this encounter Plan of Treatment Not on file documented as of this encounter Visit Diagnoses Not on filedocumented in this encounter Care Teams Senior Staff Psychologist Relationship Specialty Start Date End Date Juan Adamson MD PCP - General INTERNAL MEDICINE 10/17/19 documented as of this encounter
--- OUTSIDE RECORDS SUMMARY | 2024-10-20 18:03 | XMS_ITS | Encounter Summary ---
Author Organization [facility] Address [facility] [place] [address] [place] [address] Care Team Providers Care Engraver Flatware Name Role Phone Juan Adamson MD Primary Care Provider [phone] Encounter Details Date Type Department Care Team (Late st Contact Info) Description 05/27/2021 Orders Only [facility] [address] [place] [address] Kumar Lucero III, MD [address] [place] [address] Social History Tobacco Use Types Packs/Day Years [...] on file documented as of this encounter Results * PRE-SURGICAL/PRE-PROCEDURE CORONAVIRUS (COVID 19) (05/27/2021 7:12 AM CDT) SPEC DESCRIPTION NASOPHARYNGEAL SWAB 05/27/2021 7:11 AM CDT [facility] CORONAVIRUS SARS COV 2 PCR (RESP) NEGATIVE NEGATIVE 05/27/2021 6:24 PM CDT [facility] Comment: THE SARS-CoV-2 TEST HAS BEEN AUTHORIZED BY THE FDA UNDER AN EUA FOR USE BY AUTHORIZED LABORATORIES. PERFORMED BY NUCLEIC ACID AMPLIFICATION PCR FIRST TEST UNKNOWN 05/27/2021 7:11 AM CDT [facility] EMPLOYED IN HEALTHCARE NO 05/27/2021 7:11 AM CDT [facility] SYMPTOMATIC DEFINED BY CDC UNKNOWN 05/27/2021 7:11 AM CDT [facility] HOSPITALIZATION STATUS NO 05/27/2021 7:11 AM CDT [facility] PATIENT IN ICU NO 05/27/2021 7:11 AM CDT [facility] RESIDENT OF [facility] NO 05/27/2021 7:11 AM CDT [facility] NASOPHARYNGEAL SWAB / Unknown 05/27/2021 7:12 AM CDT us Kumar Lucero III, MD MICROBIOLOGY - GENERAL OR DERABLES Final Result [facility] [address] [place] [address], [facility] [address] [place] [address], [place] [phone] documented in this encounter Visit Diagnoses Diagnosis Pre-operative laboratory examination- Primary Pre-procedural laboratory examination documented in this encounter Additional Health Concerns Infection Onset Date Last Indicated Resolved Time COVID-19 Rule Out 05/27/2021 05/27/2021 05/27/2021 6:25 PM CDT documented as of this encounter Care Teams Engraver Flatware Relationship Specialty Start Date End Date Juan Adamson MD PCP - General INTERNAL MEDICINE 10/17/19 documented as of this encounter
--- OUTSIDE RECORDS SUMMARY | 2024-10-20 18:03 | XMS_ITS | Encounter Summary ---
Author Organization [facility] Address [address] [place] [address]. [place], [place] [id number] [place] [address] Care Team Providers Care Public Opinion Survey Taker Name Role Phone Juan Adamson MD Primary Care Provider [phone] Encounter Details Date Type Department Care Team (Latest Contact Info) Description 05/30/2021 Travel Social History Tobacco Use Types Packs/Day [...] have Coronavirus / COVID-19? No / Unsure 05/30/2021 12:30 PM CDT documented as of this encounter Plan of Treatment Not on file documented as of this encounter Visit Diagnoses Not on filedocumented in this encounter Care Teams Public Opinion Survey Taker Relationship Specialty Start Date End Date Juan Adamson MD PCP - General INTERNAL MEDICINE 10/17/19 documented as of this encounter
--- OUTSIDE RECORDS SUMMARY | 2024-10-20 18:03 | XMS_ITS | Encounter Summary ---
Author Organization [facility] Address [facility]. [place], [place] [address] [place] [address] Care Team Providers Care Rn Or Lvn Name Role Phone Juan Adamson MD Primary Care Provider [phone] Encounter Details Date Type Department Care Team (Latest Contact Info) Description 12/05/2020 2:27 PM ENGINEERING TEST MECHANIC - 12/05/2020 11:59 PM ENGINEERING TEST MECHANIC Hospital Encounter [facility] [address] [place] [address] Cedric Gayle MD [address] [place] [address] Discharge Disposition: Home or Self Care (Routine Discharge) Social History Tobacco Use Types Packs/Day Years [...] have Coronavirus / COVID-19? No / Unsure 12/05/2020 2:22 PM ENGINEERING TEST MECHANIC documented as of this encounter Medications at Time of Discharge Glucosamine-Doug droitin (COSAMIN DS OR) Take 1 tablet by mouth daily. levothyroxine 50 MCG tablet Take 50 mcg by mouth every other day. 09/11/2020 Multiple Vitamins-Mineral s (CENTRUM SILVER 50+WOMEN) Tab Take 1 tablet by mouth daily. methylPREDNISolo ne, ARTURO, 4 MG tabletIndication s:Lumbar pain Follow package directions 1 each 12/05/2020 documented as of this encounter Plan of Treatment Not on file documented as of this encounter Procedures Procedure Name Priority Date/Time Associated Diagnosis Comments XR LUMB SPINE 3V Routine 12/05/2020 3:06 PM ENGINEERING TEST MECHANIC Lumbar pain XR HIP ANA 2V Routine 12/05/2020 2:34 PM ENGINEERING TEST MECHANIC Bilateral hip pain documented in this encounter Results * XR LUMB SPINE 3V (12/05/2020 3:06 PM ENGINEERING TEST MECHANIC) Anatomical Region Laterality Modality Spine Radiographic Alicia ging 12/05/2020 3:30 PM ENGINEERING TEST MECHANIC Impressions 12/05/2020 3:31 PM ENGINEERING TEST MECHANIC Impression: 1. ??Age-indeterminate mild compression fracture T12. 2. ??Considerable degenerative disc disease and facet arthropathy in the lower lumbar spine. Interpreted By: Brad Wray MD, 12/05/2020 3:30 PM Narrative 12/05/2020 3:31 PM ENGINEERING TEST MECHANIC Date: 12/05/2020 3:01 PM Exam: XR LUMB SPINE 3V Comparison: No comparisons. Technique: 3 views of the lumbar spine. History: Lower back pain. Findings: There is normal lumbar lordosis. ??There is slight levoscoliosis in the lumbar spine. ??There is a mild compression fracture of T12 that is age indeterminate. ??There is grade 1 anterolisthesis of L4 on L5. ??There is complete disc space loss at L4-5. ??There is near complete disc space loss at L5-S1. ??There is posterior disc space loss at L3-4. ??There is moderate facet arthropathy. ??There is calcified disease in the abdominal aorta. Procedure Note Brad Wray MD - 12/05/2020 Date: 12/05/2020 3:01 PM Exam: XR LUMB SPINE 3V Comparison: No comparisons. Technique: 3 views of the lumbar spine. History: Lower back pain. Findings: There is normal lumbar lordosis. There is slight levoscoliosisin the lumbar spine. There is a mild compression fracture of T12 that isage indeterminate. There is grade 1 anterolisthesis of L4 on L5. Thereis complete disc space loss at L4-5. There is near complete disc spaceloss at L5-S1. There is posterior disc space loss at L3-4. There ismoderate facet arthropathy. There is calcified disease in the abdominalaorta. Impression: 1. Age-indeterminate mild compression fracture T12. 2. Considerable degenerative disc disease and facet arthropathy in thelower lumbar spine. Interpreted By: Brad Wray MD, 12/05/2020 3:30 PM Cedric Gayle MD GENERAL IMAGING Final Result * XR HIP ANA 2V (12/05/2020 2:34 PM ENGINEERING TEST MECHANIC) Anatomical Region Laterality Modality Hip, Pelvis Radiographic Alicia ging 12/05/2020 3:32 PM ENGINEERING TEST MECHANIC Impressions 12/05/2020 3:33 PM ENGINEERING TEST MECHANIC Impression: 1. ??No acute osseous abnormality. 2. ??Right hip joint effusion with calcified loose bodies. Interpreted By: Brad Wray MD, 12/05/2020 3:32 PM Narrative 12/05/2020 3:33 PM ENGINEERING TEST MECHANIC Date: 12/05/2020 2:34 PM Exam: XR HIP ANA 2V Comparison: No comparisons. Technique: Frontal view of the pelvis and bilateral hips with weightbearing. ??Lateral view of each hip with weightbearing. History: Bilateral hip and lower back pain. Findings: There is no fracture nor dislocation of either hip. ??There is minimal bilateral hip arthritis. ??There are scattered calcified loose bodies in the superior right hip joint. ??There is likely a right hip joint effusion. ??The pubic rami and iliac wings are intact. ??The SI joints appear normal. Procedure Note Brad Wray MD - 12/05/2020 Date: 12/05/2020 2:34 PM Exam: XR HIP ANA 2V Comparison: No comparisons. Technique: Frontal view of the pelvis and bilateral hips withweightbearing. Lateral view of each hip with weightbearing. History: Bilateral hip and lower back pain. Findings: There is no fracture nor dislocation of either hip. There isminimal bilateral hip arthritis. There are scattered calcified loosebodies in the superior right hip joint. There is likely a right hip jointeffusion. The pubic rami and iliac wings are intact. The SI jointsappear normal. Impression: 1. No acute osseous abnormality. 2. Right hip joint effusion with calcified loose bodies. Interpreted By: Brad Wray MD, 12/05/2020 3:32 PM Cedric Gayle MD GENERAL IMAGING Final Result documented in this encounter Visit Diagnoses Diagnosis Bilateral hip pain Pain in joint, pelvic region and thigh Lumbar pain Lumbago documented in this encounter Care Teams Rn Or Lvn Relationship Specialty Start Date End Date Juan Adamson MD PCP - General INTERNAL MEDICINE 10/17/19 documented as of this encounter
--- OUTSIDE RECORDS SUMMARY | 2024-10-20 18:03 | XMS_ITS | Encounter Summary ---
Author Organization [facility] Address [address] [place] [address]. [place], [place] [address] [place] [address] Care Team Providers Care Laborer Plumbing Name Role Phone Juan Adamson MD Primary Care Provider [phone] Encounter Details Date Type Department Care Team (Latest Contact Info) Description 04/24/2021 Travel Social History Tobacco Use Types Packs/Day [...] have Coronavirus / COVID-19? No / Unsure 04/24/2021 2:03 PM CDT documented as of this encounter Plan of Treatment Not on file documented as of this encounter Visit Diagnoses Not on filedocumented in this encounter Care Teams Laborer Plumbing Relationship Specialty Start Date End Date Juan Adamson MD PCP - General INTERNAL MEDICINE 10/17/19 documented as of this encounter
--- OUTSIDE RECORDS SUMMARY | 2024-10-20 18:03 | XMS_ITS | Encounter Summary ---
Author Organization [facility] Address [facility]6 [facility] [place] [address] [place] [address] Care Team Providers Care Turret Lathe Tender Name Role Phone Juan Adamson MD Primary Care Provider [phone] Reason for Visit * Auth/Cert Specialty Diagnoses / Procedures Referred By Ermelinda t Referred To Contact Diagnoses M54.16 Procedures NJX INTERLAMINAR LMBR/SAC LEFT L4, L5 TFESI Referral ID Status Reason Start Date Expiration Date Visits Re quested Visits Authorized [id number] 1 1 Encounter Details Date Type Department Care Team (Late st Contact Info) Description 05/30/2021 1:27 PM CDT - 05/30/2021 1:45 PM CDT [facility] [place] [facility] [place] [address] Kumar Lucero III, MD [address] [place] [address] LEFT L4, L5 TFESI Surgery Details Date/Time Status Location OR Service Patient Class Case Class Case Type Trauma Case? 05/30/2021 1:27 PM Posted [facility] OR OR 1 Pain Medicine Short Stay/Outpat ient Surgery No Panel 1 Procedure LRB Anes Op Region Wound Class Comments LEFT L4, L5 TFESI Left Local Back Clean Surgeon Surgeon Role Service Panel Kumar Luecro III, MD Primary Pain Medicine 1 documented in this encounter Social History Tobacco Use Types Packs/Day Years [...] PM CDT documented as of this encounter Last Filed Vital Signs Vital Sign Reading Time Taken Comments Blood Pressure 132/61 05/30/2021 12:43 PM CDT Pulse 69 05/30/2021 12:43 PM CDT Temperature 36.1 ??C (97 ??F) 05/30/2021 12:43 PM CDT Respiratory Rate 18 05/30/2021 12:43 PM CDT Oxygen Saturation 99% 05/30/2021 12:43 PM CDT Inhaled Oxygen Concentration - - Weight 63.5 kg (140 lb) 05/26/2021 11:14 AM CDT Height 175.3 cm (5' 9 ) 05/26/2021 11:14 AM CDT Body Mass Index 20.67 05/26/2021 11:14 AM CDT documented in this encounter Discharge Instructions * Attachments The following attachments cannot be sent through Care Everywhere. * Epidural Injection (Czech) documented in this encounter Medications at Time of Discharge Glucosamine-Chond roitin (COSAMIN DS OR) Take 1 tablet by mouth daily. levothyroxine 50 MCG tablet Take 50 mcg by mouth every other day. 09/11/2020 Multiple Vitamins-Minerals (CENTRUM SILVER 50+WOMEN) Tab Take 1 tablet by mouth daily. documented as of this encounter OR Notes * Op Note - Kumar Lucero III, MD - 05/30/2021 12:00 AM CDT PREPROCEDURE PAIN SCORE: 6/10. POSTPROCEDURE PAIN SCORE: 0/10. PREPROCEDURE DIAGNOSIS: Left lumbar radiculitis. POSTPROCEDURE DIAGNOSIS: Left lumbar radiculitis. PROCEDURE: Left L4 and left L5 transforaminal epidural space injection. MEDICATIONS USED: Include 3 mL of a contrast agent, 2 mL of Decadron 10 mg/mL and 2 mL of Lidocaine1% preservative-free. PROCEDURE NOTE: Patient was brought to the procedure room and placed in prone position. She was prepped and draped in sterile fashion. Left L4 and left L5 foramen were identified with fluoroscopic guidance and spinal needle placed in each sequentially. A contrast agent was injected verifying a selective nerve root pattern at each level. Then a mixture of 2 mL of Decadron 10 mg/mL with 2 mL of Lidocaine 1% preservative-free was injected, divided equally amongst each foramen. The needles were withdrawn. Follow up will be in the office in 2 weeks. documented in this encounter Plan of Treatment Not on file documented as of this encounter Procedures Procedure Name Priority Date/Time Associated Diagnosis Comments XR FLUOROSCOPY UP TO 1HR Today 05/30/2021 2:09 PM CDT NJX INTERLAMINAR LMBR/SAC 05/30/2021 1:52 PM CDT M54.16 documented in this encounter Results * XR FLUOROSCOPY UP TO 1HR (05/30/2021 2:09 PM CDT) Narrative Radiology, Technologist - 05/30/2021 2:09 PM CDT This report does not contain a radiologist's interpretation. Please review associated procedure and/or operative report. us Kumar Lucero III, MD FLUOROSCOPY Final Res ult documented in this encounter Visit Diagnoses Not on filedocumented in this encounter Administered Medications Inactive Administered Medications - up to 3 most recent administrations Medication Order MAR Action Action Date Dose Rate Site dexamethasone PF (DECADRON) injection As needed, Starting on Wed05/30/21 at 1406, Until Wed05/30/21 at 1411, Intra-Op Given 05/30/2021 2:06 PM CDT 20 mg Back iopamidol (ISOVUE-M 200) 41 % injection As needed, Starting on Wed05/30/21 at 1406, Until Wed05/30/21 at 1411, Intra-Op Given 05/30/2021 2:06 PM CDT 2 mLs Back documented in this encounter Active and Recently Administered Medications Times are shown in CDT. PRN Medication Order 05/28/2021 05/29/2021 05/30/2021 dexamethasone PF (DECADRON) injection (CANCELED) As needed, Starting on Wed05/30/21 at 1406, Until Wed05/30/21 at 1411, Intra-Op 1406 (Given - Provid er: Kumar Lucero III, MD) iopamidol (ISOVUE-M 200) 41 % injection (CANCELED) As needed, Starting on Wed05/30/21 at 1406, Until Wed05/30/21 at 1411, Intra-Op 1406 (Given - Provid er: Kumar Lucero III, MD) documented in this encounter Care Teams Turret Lathe Tender Relationship Specialty Start Date End Date Juan Adamson MD PCP - General INTERNAL MEDICINE 10/17/19 documented as of this encounter
--- OUTSIDE RECORDS SUMMARY | 2024-10-20 18:03 | XMS_ITS | Clinical Summary ---
Author Organization [facility] Address [facility]6 [facility]. [place], [place] [address] [place] [address] Care Team Providers Care Blind Stitch Machine Operator Name Role Phone Juan Adamson MD Primary Care Provider [phone] Allergies No known active allergies Medications levothyroxine 50 MCG tablet Take 50 mcg by mouth every other day. 09/11/2020 Active Multiple Vitamins-Mineral s (CENTRUM SILVER 50+WOMEN) Tab Take 1 tablet by mouth daily. Active Glucosamine-Doug droitin (COSAMIN DS OR) Take 1 tablet by mouth daily. Active Active Problems Problem Noted Date Diagnosed Date Lumbar radiculopathy 07/04/2021 Family History Medical History Relation Comments Heart Disease Brother Diabetes Father Heart Disease Mother Relation Status Comments Brother Alive Father Mother Social History Tobacco Use Types Packs/Day Years Used Date Smoking Tobacco: Never Smokeless Tobacco: Never Alcohol Use Standard Drinks/Week Comments Yes 0 (1 standard drink = 0.6 oz pur e alcohol) Comments No Sex and Gender Information Value Date Recorded Sex Assigned at Not on file Legal Sex Female 5:20 PM CDT Gender Identity Not on file Sexual Orientation Not on file Last Filed Vital Signs Vital Sign Reading Time Taken Comments Blood Pressure 117/68 05/30/2021 2:11 PM CDT Pulse 65 05/30/2021 2:11 PM CDT Temperature 36.5 ??C (97.7 ??F) 05/30/2021 2:11 PM CD T Respiratory Rate 18 05/30/2021 2:11 PM CDT Oxygen Saturation 100% 05/30/2021 2:11 PM CDT Inhaled Oxygen Concentration - - Weight 63.5 kg (140 lb) 05/26/2021 11:14 AM CDT Height 175.3 cm (5' 9 ) 05/26/2021 11:14 AM CDT Body Mass Index 20.67 05/26/2021 11:14 AM CDT Plan of Treatment Health Maintenance Due Date Last Done Comments Colorectal Cancer Screening Colonoscopy (10 Years) 1954 Hepatitis C 1972 DTaP, Tdap and Td Vaccines ( 1 - Tdap) 1973 Mammogram Screening 1994 Zoster Vaccines (2 of 3) 06/18/2015 04/23/2015 Annual Medicare Wellness Visit 2019 Dexa Scan (General) 2019 Pneumococcal Vaccine: 65+ Ye ars (1 of 1 - PCV) 2019 COVID-19 Vaccine ( - 2023-2 5 season) 2024 Influenza Adult (#1) 2024 09/24/2017 RSV Immunization or 60+ Years (1 - 1-dose 75+ series) 2029 Meningococcal Vaccine Aged Out No delma michele eligible based on patient's age to complete this topic RSV Immunizations Under 20 Months Aged Out No longer eligible based on patient's age to complete this topic Insurance MED REPLACE [facility] MEDICARE GENERIC MEDICARE MANAGED CARE Member Subscriber Plan / Payer (Ef fective 2020-Present) Name:Audrey Means Relation to Subscriber:Self Name:Audrey Means Payer ID:Not on file Group ID:[id number] Type:Not on file Address: [address] [address] [place] [address] GENERIC - COMMERCIAL Care Teams Blind Stitch Machine Operator Relationship Specialty Start Date End Date Juan Adamson MD PCP - General INTERNAL MEDICINE 10/17/19
--- OUTSIDE RECORDS SUMMARY | 2024-10-20 18:03 | XMS_ITS | Encounter Summary ---
Author Organization [facility] Address [facility]6 [facility] [place] [address] [place] [address] Care Team Providers Care Freight Associate Name Role Phone Juan Adamson MD Primary Care Provider [phone] Reason for Referral * Imaging (Routine) - Closed Specialty Diagnoses / Procedures Referred By Contac t Referred To Contact RADIOLOGY Diagnoses Lumbar radiculopathy Procedures MRI LUMB SPINE WO CON Kumar Willard III, MD Phone: tel: fax: Referral ID Status Reason Start Date Expiration Date Visits Re quested Visits Authorized [id number] Closed 04/23/2021 05/24/2022 1 1 Reason for Visit * Imaging (Routine) - Closed Specialty Diagnoses / Procedures Referred By Contac t Referred To Contact RADIOLOGY Diagnoses Lumbar radiculopathy Procedures MRI LUMB SPINE WO CON Kumar Willard III, MD Phone: tel: fax: Referral ID Status Reason Start Date Expiration Date Visits Re quested Visits Authorized [id number] Closed 04/23/2021 05/24/2022 1 1 Encounter Details Date Type Department Care Team (Latest Contact Info) Description 04/24/2021 2:13 PM CDT - 04/24/2021 11:59 PM CDT Hospital Encounter [facility] [address] [place] [address] Kumar Willard III, MD [address] [place] [id number] Discharge Disposition: Home or Self Care (Routine [...] PM CDT documented as of this encounter Medications at [...] Procedure Name Priority Date/Time Associated Diagnosis Comments MRI LUMB SPINE WO CON Routine 04/24/2021 3:03 PM CDT Lumbar radiculopathy documented in this encounter Results * MRI LUMB SPINE WO CON (04/24/2021 3:03 PM CDT) Anatomical Region Laterality Modality Spine Magnetic Resonan ce 04/25/2021 6:27 PM CDT Impressions 04/25/2021 6:32 PM CDT IMPRESSION: 1) Scoliosis associated with facet disease and grade 1 anterolisthesis L4 over L5 and L5 over S1. 2. No acute bony abnormalities. Chronic mild wedging and endplate irregularity T12 vertebra. 3. There is borderline size of the right neural foramen at the mid lumbar levels along the concavity of scoliosis. 4. L4-5: Significant facet disease with stenosis of the central canal and at least moderate to severe narrowing of neural foramen as described which appears worse on the right. Diffuse moderate disc bulge including posterolateral disc pathology's. 5. L5-S1: Prominent facet disease with at least moderate narrowing of the neural foramen bilaterally and mild central canal stenosis. Diffuse disc bulge of mild to moderate degree. Referred By: KUMAR WILLARD III Interpreted By: Sheldon Major MD, 04/25/2021 6:27 PM Narrative 04/25/2021 6:32 PM CDT Examination: MRI LUMB SPINE WO CON Exam time: 04/24/2021 3:03 PM Clinical history: Lumbar radiculitis. Low back pain. Left thigh pain and buttock pain. Comparison: There are no previous studies. Radiographs were performed November 2020. Technique: Routine protocol. Findings: There is scoliosis convex to the left. The height of the lumbar vertebra is well maintained. There is chronic deformity of the upper end plate T12 vertebra with mild loss of height unchanged from the prior radiographs. This appears chronic. The medial elements are intact. There is anterolisthesis at the level L4-5 and to a lesser degree L5-S1 which is grade 1. In the lower thoracic spine no significant disc abnormalities. There is mild mild narrowing of the neural foramen in the lower thoracic levels due to scoliosis and degenerative changes. L1-L2: Well-maintained interspace. No significant disc abnormalities or stenosis. Mild facet disease. L2-3: There is mild facet disease. There is mild disc bulge. Borderline size of the neural foramen on the right. The size of the central canal is borderline. L3-4: Mild facet disease. No significant central disc abnormalities. Borderline size of the right neural foramen. L4-L5: Severe facet disease with thickening of the ligaments and grade 1 anterolisthesis. At least moderate diffuse disc bulge and posterolateral disc bulges worse on the right. Moderate to severe stenosis of the right neural foramen and at least moderate narrowing of the left neural foramen. Further there is moderate to severe stenosis of the lateral recesses and the central canal as seen on axial image #26. L5-S1: Degenerative changes with severe facet disease worse on the left and diffuse bulge with mild grade 1 anterolisthesis. At least moderate narrowing of the neural foramen on both sides. Mild narrowing of the lateral recesses and the central canal. Within the dural sac no abnormal signal changes. The distal spinal cord unremarkable. The visualized paraspinal soft tissues demonstrate no acute abnormalities. Procedure Note Sheldon Major MD - 04/25/2021 Examination: MRI LUMB SPINE WO CON Exam time: 04/24/2021 3:03 PM Clinical history: Lumbar radiculitis. Low back pain. Left thigh pain andbuttock pain. Comparison: There are no previous studies. Radiographs were performedFebruary 2020. Technique: Routine protocol. Findings: There is scoliosis convex to the left. The height of the lumbarvertebra is well maintained. There is chronic deformity of the upper endplate T12 vertebra with mild loss of height unchanged from the priorradiographs. This appears chronic. The medial elements are intact. There is anterolisthesis at the level L4-5and to a lesser degree L5-S1 which is grade 1. In the lower thoracic spine no significant disc abnormalities. There ismild mild narrowing of the neural foramen in the lower thoracic levels dueto scoliosis and degenerative changes. L1-L2: Well-maintained interspace. No significant disc abnormalities orstenosis. Mild facet disease. L2-3: There is mild facet disease. There is mild disc bulge. Borderlinesize of the neural foramen on the right. The size of the central canal isborderline. L3-4: Mild facet disease. No significant central disc abnormalities.Borderline size of the right neural foramen. L4-L5: Severe facet disease with thickening of the ligaments and grade 1anterolisthesis. At least moderate diffuse disc bulge and posterolateraldisc bulges worse on the right. Moderate to severe stenosis of the rightneural foramen and at least moderate narrowing of the left neural foramen.Further there is moderate to severe stenosis of the lateral recesses andthe central canal as seen on axial image #26. L5-S1: Degenerative changes with severe facet disease worse on the leftand diffuse bulge with mild grade 1 anterolisthesis. At least moderatenarrowing of the neural foramen on both sides. Mild narrowing of thelateral recesses and the central canal. Within the dural sac no abnormal signal changes. The distal spinal cordunremarkable. The visualized paraspinal soft tissues demonstrate no acuteabnormalities. IMPRESSION: 1) Scoliosis associated with facet disease and grade 1 anterolisthesis L4over L5 and L5 over S1. 2. No acute bony abnormalities. Chronic mild wedging and endplateirregularity T12 vertebra. 3. There is borderline size of the right neural foramen at the mid lumbarlevels along the concavity of scoliosis. 4. L4-5: Significant facet disease with stenosis of the central canal andat least moderate to severe narrowing of neural foramen as described whichappears worse on the right. Diffuse moderate disc bulge includingposterolateral disc pathology's. 5. L5-S1: Prominent facet disease with at least moderate narrowing of theneural foramen bilaterally and mild central canal stenosis. Diffuse discbulge of mild to moderate degree. Referred By: KUMAR WILLARD III Interpreted By: Sheldon Major MD, 04/25/2021 6:27 PM us Kumar Willard III, MD MRI Final Res ult documented in this encounter Visit Diagnoses Diagnosis Lumbar radiculopathy Thoracic or lumbosacral neuritis or radiculitis, unspecified documented in this encounter Care Teams Freight Associate Relationship Specialty Start Date End Date Juan Adamson MD PCP - General INTERNAL MEDICINE 10/17/19 documented as of this encounter
--- OUTSIDE RECORDS SUMMARY | 2024-10-20 18:03 | XMS_ITS | Encounter Summary ---
Author Organization [facility] Address [facility]6 [facility]. [place], [place] [address] [place] [address] Care Team Providers Care Grinder Set Up Operator Jig Name Role Phone Juan Adamson MD Primary Care Provider [phone] Encounter Details Date Type Department Care Team (Late st Contact Info) Description 12/05/2020 Orders Only [facility] [place] [id number] Cedric Gayle MD [address] [place], [place] [id number] Social History Tobacco Use Types Packs/Day Years [...] documented as of this encounter Results * XR HIP ANA 2V (12/05/2020 2:34 PM AIR CARGO GROUND CREW SUPERVISOR) Anatomical Region Laterality Modality Hip, Pelvis Radiographic Alicia ging 12/05/2020 3:32 PM AIR CARGO GROUND CREW SUPERVISOR Impressions 12/05/2020 3:33 PM AIR CARGO GROUND CREW SUPERVISOR Impression: 1. ??No acute osseous abnormality. 2. ??Right hip joint effusion with calcified loose bodies. Interpreted By: Brad Wray MD, 12/05/2020 3:32 PM Narrative 12/05/2020 3:33 PM AIR CARGO GROUND CREW SUPERVISOR Date: 12/05/2020 2:34 PM Exam: XR HIP [...] this encounter Visit Diagnoses Diagnosis Bilateral hip pain- Primary Pain in joint, pelvic region and thigh Bilateral hip pain Pain in joint, pelvic region and thigh Lumbar pain Lumbago documented in this encounter Care Teams Grinder Set Up Operator Jig Relationship Specialty Start Date End Date Juan Adamson MD PCP - General INTERNAL MEDICINE 10/17/19 documented as of this encounter
--- OUTSIDE RECORDS SUMMARY | 2024-10-20 18:03 | XMS_ITS | Encounter Summary ---
Author Organization [facility] Address [facility]6 [facility] [place] [place] [address] [place] [address] Care Team Providers Care Program Proposals Coordinator Name Role Phone Juan Adamson MD Primary Care Provider [phone] Reason for Visit * Auth/Cert Specialty Diagnoses / Procedures Referred By Ermelinda cerda Referred To Contact Diagnoses M54.16 Procedures NJX INTERLAMINAR LMBR/SAC LEFT L4, L5 TFESI Referral ID Status Reason Start Date Expiration Date Visits Re quested Visits Authorized [id number] 1 1 Encounter Details Date Type Department Care Team (Latest Contact Info) Description 05/30/2021 12:32 PM CDT - 05/30/2021 2:29 PM CDT Hospital En[facility] [place] [address] Kumar Lucero III, MD [address] [place] [address] Discharge Disposition: Home or Self Care (Routine [...] sent through Care Everywhere. * Epidural Injection (Kazakh) documented in this encounter Medications at Time [...] Diagnoses Not on filedocumented in this encounter Active and Recently Administered [...] MD) documented in this encounter Care Teams Program Proposals Coordinator Relationship Specialty Start Date End Date Juan Adamson MD PCP - General INTERNAL MEDICINE 10/17/19 documented as of this encounter
--- OUTSIDE RECORDS SUMMARY | 2024-10-20 18:03 | XMS_ITS | Encounter Summary ---
Author Organization [facility] Address [facility] [place] [address] [place] [address] Care Team Providers Care Observation Assistant Name Role Phone Juan Adamson MD Primary Care Provider [phone] Reason for Visit * Reason Comments Follow Up Back Encounter Details Date Type Department Care Team (Late st Contact Info) Description 07/04/2021 8:05 AM CDT Office Visit [facility] [place] [id number] Kumar Lucero III, MD [address] [place] [address] Follow Up (Back) Social History Tobacco Use Types Packs/Day Years [...] have Coronavirus / COVID-19? No / Unsure 07/04/2021 7:49 AM CDT documented as of this encounter Progress Notes * Teresa Bridges CNA - 07/04/2021 8:05 AM CDT See Dry Transfer Man for Dr. Lucero's progress note. documented in this encounter Plan of Treatment Not on file documented as of this encounter Visit Diagnoses Diagnosis Lumbar radiculopathy- Primary Thoracic or lumbosacral neuritis or radiculitis, unspecified documented in this encounter Care Teams Observation Assistant Relationship Specialty Start Date End Date Juan Adamson MD PCP - General INTERNAL MEDICINE 10/17/19 documented as of this encounter
--- OUTSIDE RECORDS SUMMARY | 2024-10-20 18:03 | XMS_ITS | Encounter Summary ---
Author Organization [facility] Address [address] [place] [address]. [place], [place] [address] [place] [address] Care Team Providers Care Chief Librarian Branch Or Department Name Role Phone Juan Adamson MD Primary Care Provider [phone] Reason for Visit * Reason Comments Therapy Report (SCAN) Encounter Details Date Type Department Care Team ([facility] st Contact Info) Description 02/14/2021 Scan [facility] [address] [place] [address] [place] [address] Scanned, Documents Therapy Report (SCAN) Social History [...] on filedocumented in this encounter Care Teams Chief Librarian Branch Or Department Relationship Specialty Start Date End Date Juan Adamson MD PCP - General INTERNAL MEDICINE 10/17/19 documented as of this encounter
--- OUTSIDE RECORDS SUMMARY | 2024-10-20 18:03 | XMS_ITS | Encounter Summary ---
Author Organization [facility] Address [address] [place] [address]. [place] [address] [place] [address] Care Team Providers Care Communications Senior Associate Name Role Phone Juan Adamson MD Primary Care Provider [phone] Encounter Details Date Type Department Care Team (Latest Contact Info) Description 05/27/2021 7:07 AM CDT - 05/27/2021 11:59 PM CDT Hospital Encounter [address] [place] [address] Kumar Lucero III, MD [address] [place] [address] Discharge Disposition: Home or Self [...] have Coronavirus / COVID-19? No / Unsure 05/27/2021 7:05 AM CDT documented as of this encounter Medications at Time of Discharge Glucosamine-Chond roitin (COSAMIN DS OR) Take 1 tablet by mouth daily. levothyroxine 50 MCG tablet Take 50 mcg by mouth every other day. 09/11/2020 Multiple Vitamins-Minerals (CENTRUM SILVER 50+WOMEN) Tab Take 1 tablet by mouth daily. documented as of this encounter Plan of Treatment Not on file documented as of this encounter Procedures Procedure Name Priority Date/Time Associated Diagnosis Comments CORONAVIRUS (COVID 19) Routine 05/27/2021 7:12 AM CDT Pre-operative laboratory examination documented in this encounter Results * PRE-SURGICAL/PRE-PROCEDURE CORONAVIRUS (COVID 19) (05/27/2021 7:12 AM CDT) SPEC DESCRIPTION NASOPHARYNGEAL SWAB 05/27/2021 7:11 AM CDT [facility] CORONAVIRUS SARS COV 2 PCR (RESP) NEGATIVE NEGATIVE 05/27/2021 6:24 PM CDT [facility] Comment: THE SARS-CoV-2 TEST HAS BEEN AUTHORIZED BY THE FDA UNDER AN EUA FOR USE BY AUTHORIZED LABORATORIES. PERFORMED BY NUCLEIC ACID AMPLIFICATION PCR FIRST TEST UNKNOWN 05/27/2021 7:11 AM CDT [facility] EMPLOYED IN HEALTHCARE NO 05/27/2021 7:11 AM CDT [facility] SYMPTOMATIC DEFINED BY CDC UNKNOWN 05/27/2021 7:11 AM CDT [facility] HOSPITALIZATION STATUS NO 05/27/2021 7:11 AM CDT [facility] PATIENT IN ICU NO 05/27/2021 7:11 AM CDT [facility] RESIDENT OF [facility]G[place]ATE CARE NO 05/27/2021 7:11 AM CDT [facility] NASOPHARYNGEAL SWAB / Unknown 05/27/2021 7:12 AM CDT us Kumar Lucero III, MD MICROBIOLOGY - GENERAL OR DERABLES Final Result [facility] [address] [place] [address], [place] [phone] [facility] [address] [place] [address], [place] [phone] documented in this encounter Visit Diagnoses Diagnosis Pre-operative laboratory examination Pre-procedural laboratory examination documented in this encounter Additional Health Concerns Infection Onset Date Last Indicated Resolved Time COVID-19 Rule Out 05/27/2021 05/27/2021 05/27/2021 6:25 PM CDT documented as of this encounter Care Teams Communications Senior Associate Relationship Specialty Start Date End Date Juan Adamson MD PCP - General INTERNAL MEDICINE 10/17/19 documented as of this encounter
--- OUTSIDE RECORDS SUMMARY | 2024-10-20 18:03 | XMS_ITS | Encounter Summary ---
Author Organization [facility] Address [address] [place] [address]. [place], [place] [address] [place] [address] Care Team Providers Care Speed Reading Teacher Name Role Phone Juan Adamson MD Primary Care Provider [phone] Reason for Visit * Reason Comments Therapy Report (SCAN) Encounter Details Date Type Department Care Team ([facility] st Contact Info) Description 02/09/2021 Scan [facility] [address] [place] [address] [place] [address] Scanned, Documents Therapy Report (SCAN) Social History [...] on filedocumented in this encounter Care Teams Speed Reading Teacher Relationship Specialty Start Date End Date Juan Adamson MD PCP - General INTERNAL MEDICINE 10/17/19 documented as of this encounter
--- OUTSIDE RECORDS SUMMARY | 2024-10-20 18:03 | XMS_ITS | Encounter Summary ---
Author Organization [facility] Address [address] [place] [address]. [place], [place] [id number] [place] [address] Care Team Providers Care Voice Instructor Name Role Phone Juan Adamson MD Primary Care Provider [phone] Encounter Details Date Type Department Care Team (Latest Contact Info) Description 12/05/2020 Travel Social History Tobacco Use Types Packs/Day [...] COVID-19? 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
--- OUTSIDE RECORDS SUMMARY | 2024-10-20 18:03 | XMS_ITS | Encounter Summary ---
Author Organization [facility] Address [address] [place] [address]. [place], [place] [address] [place] [address] Care Team Providers Care Straw Boss Name Role Phone Juan Adamson MD Primary Care Provider [phone] Reason for Visit * Reason Comments New Patient BILATERAL Hip pain a nd lower back Encounter Details Date Type Department Care Team (Latest Contact Info) Description 12/05/2020 2:45 PM REMOTE COMPUTER TERMINAL OPERATOR Office Visit [facility] [place] [address] Cedric Gayle MD [address] [place] [address] New Patient (BILATERAL Hip pain and lower back) Social History Tobacco Use Types Packs/Day Years [...] COVID-19? No / Unsure 12/05/2020 2:22 PM REMOTE COMPUTER TERMINAL OPERATOR documented as of this encounter Last Filed Vital Signs Vital Sign Reading Time Taken Comments Blood Pressure - - Pulse - - Temperature - - Respiratory Rate - - Oxygen Saturation - - Inhaled Oxygen Concentration - - Weight 63.5 kg (140 lb) 12/05/2020 2:36 PM REMOTE COMPUTER TERMINAL OPERATOR Height 175.3 cm (5' 9 ) 12/05/2020 2:36 PM REMOTE COMPUTER TERMINAL OPERATOR Body Mass Index 20.67 12/05/2020 2:36 PM REMOTE COMPUTER TERMINAL OPERATOR documented in this encounter Progress Notes * Cedric Gayle MD - 12/05/2020 2:45 PM CST Chief Complaint: New Patient (BILATERAL Hip pain and lower back) History of Present Illness: Audrey Means is a 65-year-old female who presents to the office for New Patient (BILATERAL Hip pain and lower back) Patient arrives to clinic for the complaint of BILATERAL hip pain for 1 year. She denies any injury. She states that her LEFT hip pain is worse than her RIGHT hip. Locates pain to the BILATERAL hip joints with radiation into her lower back. No radiation down her legs. Denies any numbness or tingling. Night pain. She is using Naprosyn for pain with some relief. No history of assistive devices or injections. History of physical therapy for her lower back. ROS: See HPI for pertinent positives Problem List: There is no problem list on file for this patient. History: Past Medical History: Diagnosis Date ??? SVT (supraventricular tachycardia) (CMS/HCC) ??? Thyroid disease Past Surgical History: Procedure Laterality Date ??? HC CATHETER ABLATION NON-CARDIAC ENDO T1 ??? HYSTERECTOMY ??? TONSILLECTOMY AND ADENOIDECTOMY Family History Problem Relation Name Age of Onset ??? Heart Disease Mother ??? Diabetes Father ??? Heart Disease Brother Social History Tobacco Use ??? Smoking status: Never Smoker ??? Smokeless tobacco: Never Used Substance Use Topics ??? Alcohol use: Yes ??? Drug use: Never Medications: Current Outpatient Medications: ??? Glucosamine-Chondroitin (COSAMIN DS OR), Take 1 tablet by mouth daily., Disp: , Rfl: ??? levothyroxine 50 MCG tablet, Take 50 mcg by mouth every other day., Disp: , Rfl: ??? methylPREDNISolone, ARTURO, 4 MG tablet, Follow package directions, Disp: 1 each, Rfl: 0 ??? Multiple Vitamins-Minerals (CENTRUM SILVER 50+WOMEN) Tab, Take 1 tablet by mouth daily., Disp: , Rfl: No Known Allergies Objective: Filed Vitals: 12/05/20 1436 Weight: 63.5 kg (140 lb) Height: 5' 9 (1.753 m) Body mass index is 20.67 kg/m??. Physical Exam: Constitutional: Alert and in no acute distress. Neurological: The patient was oriented to person, place, and time. Eyes: The sclera and conjunctiva were normal ENT: Hearing was normal. Neck: The appearance of the neck was normal. Cardiovascular: Normal pulses. Pulmonary: No respiratory distress. Skin: No injuries or skin lesions. Musculoskeletal: Examination demonstrates that she is neurovascularly intact with no radicular symptoms. She does have tenderness with palpation over the central lumbar region and this is accentuatedwith lumbar motion. Patient is very stiff with antalgic gait. Rotation produces discomfort in the lumbar spine also. Rotation of the hips demonstrates no groin pain and she has good range of motion. Flexibility is actually good also with her hamstrings Results: Diffuse facet arthritis is appreciated in the lumbar spine with some hyperlordosis. She has grade 1spondylolisthesis of L4 on L5 but disc spaces appear pretty well-maintained Assessment: Encounter Diagnose(s) ICD-10-CM ICD-9-CM SNOMED CT(R) 1. Lumbar pain M54.5 724.2 LOW BACK PAIN XR LUMB SPINE 3V methylPREDNISolone, ARTURO, 4 MG tablet Plan: Patient has facet arthropathy along with spondylolisthesis. I do not expect to see a nerve root impingement as she does not really have those symptoms. I have provided a prescription for a Dosepak for more immediate relief and she uses naproxen otherwise. I recommended physical therapy for lumbar stabilization. She works out routinely and so I would expect her to see improvement once she incorporates the core strengthening exercises into her workout routine. She will return as needed Follow up: Return if symptoms worsen or fail to improve. CEDRIC GAYLE MD TE COMPUTER TERMINAL OPERATOR documented in this encounter Plan of Treatment Not on file documented as of this encounter Results * XR LUMB SPINE 3V (12/05/2020 3:06 PM REMOTE COMPUTER TERMINAL OPERATOR) Anatomical Region Laterality Modality Spine Radiographic Alicia ging 12/05/2020 3:30 PM REMOTE COMPUTER TERMINAL OPERATOR Impressions 12/05/2020 3:31 PM REMOTE COMPUTER TERMINAL OPERATOR Impression: 1. ??Age-indeterminate mild compression fracture T12. 2. ??Considerable degenerative disc disease and facet arthropathy in the lower lumbar spine. Interpreted By: Brad Wray MD, 12/05/2020 3:30 PM Narrative 12/05/2020 3:31 PM REMOTE COMPUTER TERMINAL OPERATOR Date: 12/05/2020 3:01 PM Exam: XR LUMB [...] in this encounter Visit Diagnoses Diagnosis Lumbar pain- Primary Lumbago documented in this encounter Care Teams Straw Boss Relationship Specialty Start Date End Date Juan Adamson MD PCP - General INTERNAL MEDICINE 10/17/19 documented as of this encounter
--- OUTSIDE RECORDS SUMMARY | 2024-10-20 18:03 | XMS_ITS | Encounter Summary ---
Author Organization [facility] Address [address] [place] [address]. [place], [place] [address] [place] [address] Care Team Providers Care Audio Video Tech Name Role Phone Juan Adamson MD Primary Care Provider [phone] Encounter Details Date Type Department Care Team (Latest Contact Info) Description 07/04/2021 Travel Social History Tobacco Use Types Packs/Day [...] on filedocumented in this encounter Care Teams Audio Video Tech Relationship Specialty Start Date End Date Juan Adamson MD PCP - General INTERNAL MEDICINE 10/17/19 documented as of this encounter
--- OUTSIDE RECORDS SUMMARY | 2024-10-20 18:03 | XMS_ITS | Encounter Summary ---
Author Organization [facility] Address [address] [place] [address]. [place], [place] [address] [place], [place] [id number] Care Team Providers Care Procurement Manager Name Role Phone Juan Adamson MD Primary Care Provider [phone] Encounter Details Date Type Department Care Team (Latest Contact Info) Description 05/27/2021 Travel Social History Tobacco Use Types Packs/Day [...] Diagnoses Not on filedocumented in this encounter Additional Health Concerns Infection Onset Date Last Indicated Resolved Time COVID-19 Rule Out 05/27/2021 05/27/2021 05/27/2021 6:25 PM CDT documented as of this encounter Care Teams Procurement Manager Relationship Specialty Start Date End Date Juan Adamson MD PCP - General INTERNAL MEDICINE 10/17/19 documented as of this encounter
--- OUTSIDE RECORDS SUMMARY | 2024-10-20 18:04 | XMS_ITS | Encounter Summary ---
Author Organization [facility] Address [facility]. [place], [place] [address] [place] [address] Care Team Providers Care Car Supplier Name Role Phone Unavailable Primary Care Provider Unavailabl e Encounter Details Date Type Department Care Team (Late st Contact Info) Description 11/15/2002 Abstract [facility] CONVERSION [address] [place] [address] , Generic Conversion, Social History Tobacco Use Types Packs/Day Years Used Date Smoking Tobacco: Never Assessed Comments Unknown Sex and Gender Information Value Date Recorded Sex Assigned at Not on file Legal Sex Female 5:20 PM CDT Gender Identity Not on file Sexual Orientation Not on file documented as of this encounter Plan of Treatment Not on file documented as of this encounter Visit Diagnoses Not on filedocumented in this encounter
--- OUTSIDE RECORDS SUMMARY | 2024-10-20 18:05 | XMS_ITS | Continuity of Care Document ---
Author Organization [facility] Address [address] [place] [address] Phone Care Team Providers Care Back Order Clerk Name Role Phone Rincon OD, Bill Unavailable Unavailable Procedures Procedure Date Eye Exam Established Pt Eye Exam & Treatment Refraction Eye Exam & Treatment Refraction Eye Exam Established Pt Eye Exam & Treatment Refraction Advance Directives Directive Yes / No Effective Date File Name No Information Encounters Encounter Description Practice Location Reason(s) For Visit Diagnoses Date Provider Providers Copied on Encounter [facility], [address] [place] [address] [address], [place], [place], [id number], tel:[phone] [facility] No Information 201 0 Rincon OD Bill. [address] , [address], [place], [place], [facility], [place]. tel:[phone] [facility], [address] [place] [address] [address], [place], [place], [id number], [place] tel:[phone] [facility] No Information 5-201 0 Rincon OD Bill. [address], [address], [place], [place], [facility], . tel:[phone] [facility], [address] [place] [address] [address], [place], [place], [id number], [place] tel:[phone] [facility] No Information Deepak-2 5-200 9 Rincon OD Bill. [address] [facility] , [address], [place], [address], . tel:[phone] [facility], [address], [place], [place], [id number], [place] tel:[phone] [facility] No Information Oct-3 1-200 8 Krishnasamy [address]. [address] [facility] [address], [place], [address], [place]. tel:[phone] [facility], [address], [place], [place], [address], [place] tel:[phone] [facility] No Information Jan-1 0-200 8 Rincon OD Bill. [address] [facility] , [address], [place], [facility], [place]. tel:[phone] Family History Family Member Type Diagnosis Age At Onset No Information Payers Payer name Insurance type Covered alliance party ID Authoriza tion(s) No Information Social History Type Description Quantity Date Captured Comments Sex Female Smoking Status No Information Chief Complaint And Reason For Visit No Information Reason For Referral Reason For Referral No Information History Of Present Illness Encounter Date Complaint History Of Prese nt Illness No Information Functional Status Date Functional Assessmen t No Information Instructions Date Instruction Additional Infor mation No Information Assessments Type Assessment Date No Information Patient Care Teams Name Effective Dates (start - stop) Status Members No Information
== END 2024-10-13 08:23 | disposition home or self-care (01) ==
PROVIDERS: PCP Internal Medicine; Visit Provider Nurse Practitioner Family
DX: M81.0 Age-related osteoporosis without current pathological fracture (principal)
CPT/HCPCS: 96374; J3489

== ENCOUNTER 2025-10-02 11:44 | Outpatient (CLI) | payer MEDICARE, SELFPAY ==
--- NOTE | ~2025-10-02 | DEXA_ITS ---
Bone Density Report Name: JOSE LUIS HOOPER Age: 70 Sex: Female Ethnicity: White Date of : 1955 Indication: postmenopausal; screening for osteoporosis; height loss; prior fracture; hysterectomy; Referring Provider: MASHA, VIOLETTA Gibbs Study: Bone densitometry was performed. Exam Date: October 02, 2025 Accession number: [id number] Bone Density: Region BMD T-score Z-score Classification AP Spine(L1-L4) 0.983 -0.6 1.6 Normal Femoral Neck (Left) 0.581 -2.4 -0.6 Osteopenia Total Hip (Left) 0.738 -1.7 -0.1 Osteopenia Femoral Neck (Right) 0.586 -2.4 -0.5 Osteopenia Total Hip (Right) 0.774 -1.4 0.2 Osteopenia Femoral Neck Mean 0.584 -2.4 -0.5 Osteopenia Total Hip Mean 0.756 -1.5 0.0 Osteopenia World Health Organization criteria for BMD impression classify patients as: Normal (T-score at or above -1.0), Osteopenia (T-score between -1.0 and -2.5), or Osteoporosis (T-score at or below -2.5). 10-year Fracture Risk: FRAX not reported because: Prior hip or vertebral fracture Treated for osteoporosis Clinical Information Provided by Patient: Have had a previous hip or vertebral fracture Has had a low trauma fracture Smokes Is being treated for osteoporosis Has used the following medications: Vitamin D, multivitamin Has the following medical conditions: Hysterectomy Patient maximum height was 69 Menopause Age: 44 Drinks caffeinated beverages Onset of menses at age 15 Number of children 3 Impression: The patient has low bone mass, based on the Left Femoral Neck T-score. The patient has risk factors, including: smoking, previous fracture. Discussion: It is important to ask patients whether they are taking their medications and to encourage continued and appropriate compliance with their osteoporosis therapies to reduce fracture risk. It is also important to review their risk factors and encourage appropriate calcium and vitamin D intakes, exercise, fall prevention and other lifestyle measures. Follow-Up: Consider a repeat BMD and Vertebral Fracture Assessment (VFA) exam in 2 years or sooner if medically necessary, to reassess this patient's status. Reported by: JOSSE on 10/02/2025 12:06:00 PM. Reviewed, dictated and finalized at location A.
--- OUTSIDE RECORDS SUMMARY | 2025-10-02 14:07 | XMS_ITS | Clinical Summary ---
Author Organization [facility] [address] Address [address] [place] [address] Care Team Providers Care Plc Programmer Name Role Phone Juan Adamson MD Primary Care Provider [phone] Allergies No known active allergies Medications sertraline (ZOLOFT) 100 mg tablet take half pill daily 0 0 6 Active Additional Information Patient taking differently: 50 mg, Take 1/2 to 1 tablet by mouth daily, Reported on 06/16/2017 levothyroxine sodium (TIROSINT) 50 mcg capsule take 1 capsule by oral route every day 0 0 6 Active Active Problems No known active problems Medical History Medical History Date Comments Hx Other Medical PSVT Depression Depression Hx Other Medical hypothyroidism Hx Other Medical dyslipidemia Hx Other Medical history time, l eft breast lumpectomy benign, tonsi Family History Medical History Relation Name Comments Coronary artery disease Father Imelda nary artery disease; /CABG; Other Father abdominal herni a complications; Cause of : abdominal hernia complications Coronary artery disease Mother Imelda nary artery disease; Cause of : Coronary artery disease Hyperlipidemia Mother Hyperlipidemi a; Hypertension Mother Hypertension; Other Mother CABG AGE 59; Relation Name Status Comments Father (Age 76) Mother (Age 83) Social History Tobacco Use Types Packs/Day Years Used Date Smoking Tobacco: Never Smokeless Tobacco: Never Alcohol Use Standard Drinks/Week Comments Yes 0 (1 standard drink = 0.6 oz pur e alcohol) Comments Unknown Sex and Gender Information Value Date Recorded Sex Assigned at Not on file Legal Sex Female 7:10 PM RECEPTIONIST DOCTOR'S OFFICE Gender Identity Not on file Sexual Orientation Not on file Last Filed Vital Signs Vital Sign Reading Time Taken Comments Blood Pressure 96/70 06/16/2017 1:15 PM CDT Pulse 78 06/16/2017 1:15 PM CDT Temperature - - Respiratory Rate - - Oxygen Saturation 98% 06/16/2017 1:15 PM CDT Inhaled Oxygen Concentration - - Weight 65 kg (143 lb 3.2 oz) 06/16/2017 1:15 PM CDT Height 172.7 cm (5' 8) 06/16/2017 1:15 PM CDT Body Mass Index 21.77 06/16/2017 1:15 PM CDT Plan of Treatment Not on file Insurance CARE OTHER [facility] Care Teams Plc Programmer Relationship Specialty Start Date End Date Juan Adamson MD PCP - General 04/15/16
--- OUTSIDE RECORDS SUMMARY | 2025-10-02 14:07 | XMS_ITS | Clinical Summary ---
Author Organization [facility] Address [address] [place] [address] Care Team Providers Care Radio Assembler Name Role Phone Juan Adamson MD Primary Care Provider Allergies No known active allergies Medications levothyroxine [...] 65 05/30/2021 2:11 PM CDT Temperature 36.5 C (97.7 F) 05/30/2021 2:11 PM CDT Respiratory Rate 18 05/30/2021 2:11 PM CDT Oxygen Saturation 100% 05/30/2021 2:11 PM CDT Inhaled Oxygen Concentration - - Weight 63.5 kg (140 lb) 05/26/2021 11:14 AM CDT Height 175.3 cm (5' 9) 05/26/2021 11:14 AM CDT Body Mass Index 20.67 05/26/2021 11:14 AM CDT Plan of Treatment Health Maintenance Due Date Last Done Comments Colorectal Cancer Screening Colonoscopy (10 Years) 1954 Hepatitis C 1972 DTaP, Tdap and Td Vaccines ( 1 - Tdap) 1973 Mammogram Screening 1994 Pneumococcal Vaccine: 50+ Ye ars (1 of 1 - PCV) 2004 Zoster Vaccines (2 of 3) 06/18/2015 04/23/2015 Annual Medicare Wellness Visit 2019 Dexa Scan (General) 2019 COVID-19 Vaccine ( - 2024-2 6 season) 2025 Influenza Adult (#1) 2025 09/24/2017 RSV Immunization or 60+ Years (1 - 1-dose 75+ series) 2029 Hepatitis A Vaccines Aged Out No long er eligible based on patient's age to complete this topic Meningococcal B Vaccine Aged Out No l onger eligible based on patient's age to complete this topic Meningococcal Vaccine Aged Out No delma michele eligible based on patient's age to complete this topic RSV Immunizations Under 20 Months Aged Out No longer eligible based on patient's age to complete this topic Insurance MED REPLACE [facility] GROUP MEDICARE GENERIC MEDICARE MANAGED CARE Member Subscriber Plan / Payer (Ef fective 2020-Present) Name:Audrey Means Relation to Subscriber:Self Name:Audrey Means Payer ID:Not on file Group ID:[id number] Type:Not on file Address: [address] [address] [place] [address] GENERIC - COMMERCIAL Care Teams Radio Assembler Relationship Specialty Start Date End Date Juan Adamson MD PCP - General INTERNAL MEDICINE 10/17/19
== END 2025-10-02 11:45 | disposition home or self-care (01) ==
PROVIDERS: PCP Internal Medicine; Visit Provider Nurse Practitioner Family
DX: M81.0 Age-related osteoporosis without current pathological fracture (principal); M85.89 Other specified disorders of bone density and structure, multiple sites
CPT/HCPCS: 77080

== ENCOUNTER 2025-10-16 07:42 | Outpatient (CLI) | payer MEDICARE, SELFPAY ==
--- OUTSIDE RECORDS SUMMARY | 2025-10-16 07:48 | XMS_ITS | Clinical Summary ---
Author Organization [facility] Address [address] [place] [address] Care Team Providers Care Interpretive Program Coordinator Name Role Phone Juan Adamson MD [...] to complete this topic Insurance MED REPLACE [facility] GROUP MEDICARE GENERIC MEDICARE MANAGED CARE Member Subscriber Plan / Payer (Ef fective 2020-Present) Name:Audrey Means Relation to Subscriber:Self Name:Audrey Means Payer ID:Not on file Group ID:[id number] Type:Not on file Address: [address] [address] [place] [address] GENERIC - COMMERCIAL Care Teams Interpretive Program Coordinator Relationship Specialty Start Date End Date Juan Adamson MD PCP - General INTERNAL MEDICINE 10/17/19
--- OUTSIDE RECORDS SUMMARY | 2025-10-16 07:48 | XMS_ITS | Clinical Summary ---
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
[2025-10-16 07:54] VITALS: BP 137/59; PULSE 76; RESP 18; TEMP 36.8; O2SAT 98
[2025-10-16 07:55] VITALS: BMI 23.6
[2025-10-16] MEDS: ZOLEDRONIC ACID 5 MG/100 ML 100 ML 400 MG IVPB (08:15)
== END 2025-10-16 08:39 | disposition home or self-care (01) ==
PROVIDERS: PCP Internal Medicine; Visit Provider Internal Medicine
DX: M81.0 Age-related osteoporosis without current pathological fracture (principal)
CPT/HCPCS: 96365; 96374; J3489